=== PATIENT | female | born 1940 | race Caucasian/White ===

== ENCOUNTER 2022-02-26 07:26 | Outpatient (RCR) | payer MEDICARE, OTHER, SELFPAY ==
--- NOTE | 2022-02-26 13:33 | PT.OPEX ---
PT [facility] Eval PT [facility] Outpatient Eval Start: 02/26/22 07:12 Freq: Status: Active Protocol: Document 02/26/22 11:50 KLV (Rec: 02/26/22 12:09 KLV [id number]) E-signed By Tanesha Candelario, PT Physical Therapy Outpatient Evaluation Insurance Information Recert Due Date 05/21/22 Insurance Name Medicare B,Other; See Comments Insurance Information/Comments for life Medical Diagnosis Left knee pain (pre and post operative TKA) DOS 03/07/22 Treating Diagnosis Left knee pain, limited knee ROM, antalgic gait, impaired transfers, gross L LE weakness Referring MD Fay Subjective Subjective Patient reports to PT with chronic left knee pain. She notes right knee pain as well but not as severe as L side. She has had multiple rounds of injections with recent ones providing no significant relief. She denies any recent falls or injuries. She lives with her daughter, Jenny who will be present 27/01 for 1 week following Lima's surgery prior to her returning to work. Patient currently I with ambulation and ADLs including dressing, bathing, eating. Daughter assists with laundry, cooking and cleaning. Patient does live in split entry home with 9 steps to enter and uni railing on R side. Everything is on 1 level once she is inside the home. PMH: CVA affecting R side-has used AD in the past however not currently using AD, angina with stent placement, arthritis, osteoporosis Pain Comments 03/16 left knee 11/13 right knee Date of Last Physician Visit 01/16/22 Date of Surgery (If applicable) 03/07/22 Current Work Status Retired Precautions Weight Bearing Status Weight Bear as Tolerated Therapy Limitations/Systems Review Cognition,Hearing Objective Other/Pertinent Objective UE ROM WFL UE Strength (R/L): -ER0: R: 4-/5, L: 4/5 -IR0: R: 4/5, L: 4/5 -FF: R: 4/5, L: 4+/5 -Abduction: R: 3+/5, L: 4/5 Information Director strength: symmetrical B Sensation: intact to light touch throughout B LE Knee ROM: - R 0-134 - L 0-111 Quad set: good however painful L>R SLR able to perform x3 without assist, x2 with UE strap assist BP 142/83 HR 58 bpm Gait: ambulated without AD, limited stance time L LE, mid foot strike L LE Assessment Assessment/Impression Pt presents with signs and symptoms consistent with primary L knee OA. DOS: scheduled for 03/07/22. Anticipated deficits/ impairments in pain, ROM, and strength complicated by history of CVA, arthritis, osteoporosis. Pt would benefit from skilled PT interventions to facilitate preparation for upcoming surgery and optimization of return to PLOF following surgery. She demonstrates independence with HEP and use of FWW as well as appropriate gait pattern on stairs. Daughter will be present and able to assist with all caregiver needs post- surgery. Primary Functional Limitations Walking, sitting, standing Plan of Care Rehabilitation Potential Fair Physical Therapy Goals By end of session today, patient will... Demonstrate appropriate gait pattern with FWW to utilize post surgery for optimal safety when ambulating Demonstrate ability to negotiate stairs using appropriate stair pattern post surgery for optimal safety when at home and in community Verbalize understanding of most appropriate home set up including needed equipment for optimal safety and recovery post surgery Be independent in HEP program to show ability to perform appropriate exercises post surgery Treatment Plan/Direct Interventions Gait Training,Ice/Cold/ Vasopneumatic,Joint Mobilization,Manual Therapy, Neuromuscular Re-ed,Self-Care/ Home Management,Therapeutic Activities,Therapeutic Exercises Frequency/Duration 1-2 x/wk for 8 weeks Patient Will Be Discharged From Therapy Completion of LTG(s),Skills Plateau,Independent w/HEP, Independently Progressing Evaluation Billing Untimed Code Treatment Minutes 20 Complexity Moderate Certification Information Initial Certification Date 02/26/22 Ending Certification Date 05/21/22 Provider Signature Shows Agreement With POC & Medical Necessity Physician Comment/Change Comment or Changes Physician NPI Number #
== END 2022-05-02 11:40 | disposition home or self-care (01) ==
PROVIDERS: PCP Family Medicine; Visit Provider Orthopaedic Surgery
DX: M25.562 Pain in left knee (principal); Z51.89 Encounter for other specified aftercare
CPT/HCPCS: 97110; 97116; 97162

== ENCOUNTER 2022-03-07 07:57 | Day surgery (SDC) | payer MEDICARE, OTHER, SELFPAY ==
[2022-03-07] VITALS (38 sets, daily range): BP systolic 62–176; BP diastolic 45–100; PULSE 47–63; RESP 12–20; TEMP 35.4–36.7; O2SAT 91–99; BMI 32.0
[2022-03-07] MEDS: ACETAMINOPHEN 500 MG TABLET 1000 MG PO ×2 (09:41→18:01)
[2022-03-07] MEDS: OXYCODONE (CR) 10 MG TAB.ER.12H PO (09:41)
[2022-03-07] MEDS: LACTATED RINGERS 1000 ML 1,000 ML 100 ML IV (09:45)
[2022-03-07] MEDS: SODIUM CHLORIDE 0.9 % (FLUSH) 10 ML SYRINGE IVF (09:45)
[2022-03-07] MEDS: fentaNYL 100 MCG/2 ML inj IVP (09:52)
[2022-03-07] MEDS: MIDAZOLAM HCL 1 MG/ML inj IVP (09:52)
--- NOTE | 2022-03-07 10:00 | SUR.PREOP ---
TIME?OUT:?0956 PT/RN/MDA?VERIFICATION?OF?SURGICAL?SITE,?PROCEDURE,?AND?CONSENT OBTAINED?PRIOR?TO?INVASIVE?PROCEDURE.
--- NOTE | 2022-03-07 10:00 | W.PM.NB ---
Nerve Block Nerve Block Time Seen by Provider: 10:00 Date Seen: 03/07/22 Type of block requested by surgeon for post-operative analgesia: adductor canal Side: left Time out performed: Yes Verification of patient name: Yes Verification of date of : Yes Site marking: site marked Name of person performing procedure: Venancio Continuous monitoring Was continuous monitoring of O2 sat, B/P, administrative support clerk, recorded every 15 minutes?: Yes Procedure Checklist: sterile prep, needles and gloves Ultrasound guided. Images saved: Yes Medications given in 5ml increments after negative aspiration: Ropivicaine %: 0.5 mL: 20 Needle gauge: 22 Decadron (mg): 10 Precedex (mcg): 25 Patient tolerated procedure well: Yes Additional comments: Needle noted adjacent to nerve Block Charges Block Charge (with Pro Fee): Femoral Nerve Use of Ultrasound Machine for Block: Yes- US Guidance/pain block
[2022-03-07] MEDS: CEFAZOLIN 2 GM INJ IVP (10:09)
[2022-03-07] MEDS: TRANEXAMIC ACID 100 MG/ML INJ 1000 MG IV (10:10)
--- NOTE | 2022-03-07 11:35 | CRLHL7_ITS ---
For Patients: As a result of the Cures Act, medical imaging exams and procedure reports are released immediately into your electronic medical record. You may view this report before your referring provider. If you have questions, please contact your health care provider. INDICATION: Post operative left total knee arthroplasty TECHNIQUE: Knee radiograph 2 views left COMPARISON: None FINDINGS: Bone: No acute fractures or aggressive bone lesions are identified. Joint: The patient is status post a total knee arthroplasty with patellar resurfacing. No significant knee effusion is seen. Soft tissue: Anterior skin, subcutaneous gas and joint gas are present from recent surgery. No radiopaque foreign bodies are seen. IMPRESSION: 1. There is an unremarkable postoperative appearance of the knee arthroplasty. Dictated by: Omi Muñoz MD @ 03/07/2022 13:45:11 (Electronically Signed)
--- NOTE | 2022-03-07 11:41 | P.ORPRC_ITS ---
Procedure Note Date of procedure: 03/07/22 Procedure: SURGEON: Benson Fay MD RESEARCH TECHNOLOGIST: KIKO Hernandez PREOPERATIVE DIAGNOSIS: Left knee osteoarthritis POSTOPERATIVE DIAGNOSIS: Left knee osteoarthritis NAME OF OPERATION: Left total knee arthroplasty ANESTHESIA: Spinal ESTIMATED BLOOD LOSS: 0 mL COMPLICATIONS: None SPECIMENS: None DRAINS: None PREOPERATIVE ANTIBIOTICS: Ancef 2 grams IMPLANTS: 1. J&J Attune # 5 posterior stabilized femur 2. # 3 fixed-bearing tibia 3. # 5 posterior stabilized, 5 mm fixed-bearing polyethylene 4. 32 patella INDICATIONS: The patient is a 81-year-old female with a longstanding history of severe, unrelenting left knee pain secondary to end-stage (grade IV) left knee osteoarthritis. Despite appropriate nonoperative management, including activity modification, anti-inflammatories, qbrv-wip-znefxvz pain medication, bracing, physical therapy, and injections they continue to have pain and disability. Operative intervention was offered. The risks, benefits and expected outcomes were discussed in detail. These included but were not limited to: Infection, bleeding, injury to blood vessel or nerve, venous thromboembolism. All questions were answered to their satisfaction. Use of an food and nutrition services assistant was necessary throughout the case for patient positioning and safety, soft tissue retraction, and closure. PROCEDURE: Spinal anesthesia was administered. The patient was placed supine on the operating table. The food and nutrition services assistant made sure the patient was positioned appropriately. The lower extremity was prepped and draped in the usual sterile fashion. The limb was exsanguinated with the Farshad bandage. The pneumatic tourniquet was inflated to 300 mmHg. A standard anterior incision was made with the knee in flexion. Subcutaneous dissection was sharply taken through fascial layer #1. Full-thickness medial and lateral flaps were elevated. The food and nutrition services assistant retracted the soft tissues and protected them throughout the case. A standard medial parapatellar approach was made. The patella was everted. The infrapatellar fat pad was preserved. The menisci and cruciate ligaments were sharply d?brided. Marginal osteophytes were d?brided with the rongeur. The drill was used to penetrate the femoral canal. The canal was aspirated and irrigated with pulse lavage. The intramedullary femoral guide was placed for a 5-degree valgus cut, removing 10 mm off the distal femur. The saw was used to make the cut. Whitesides line and the trans epicondylar axis were marked. The femoral sizing guide was pinned onto the distal femur. Three degrees of external rotation nicely parallels the transepicondylar axis. Pins were placed for posterior referencing. The four-in-one cutting guide was pinned onto the distal femur. The anterior, posterior, and chamfer cuts were made. The food and nutrition services assistant protected the collateral ligaments. The box cutting guide was pinned. The box cuts were made. The boxed trial was placed and was an excellent fit. Drill holes for the lugs were made. Attention was then turned to the proximal tibia. The extramedullary tibial guide was placed for a neutral varus/valgus cut with 5 degrees of posterior slope, removing 2 mm based off the medial tibial surface. The food and nutrition services assistant protected the collateral ligaments and the neurovascular bundle. The saw was used to make the cut. Trial components were placed. The knee was nicely balanced in both flexion and extension. Rotation of the tibial component was matched to the femur in full extension, matched to our tibial cutting pins, and marked with cautery. The trial components were removed. The tray was pinned by the food and nutrition services assistant and the drill and the punch were used. The tray was removed. The punch was used again. We placed a bone plug in the femoral canal. Attention was then turned to the patella. [place] patellar thickness was 22 mm. The lobster claw resection guide was used with the 7.5 mm magalys. The saw was used to make the cut. Drill holes were made by the food and nutrition services assistant. The trial was placed and was an excellent fit. Cancellous surfaces were irrigated with pulse lavage and thoroughly dried by the food and nutrition services assistant. We cemented the tibial component, then the femoral component. A trial spacer was placed. The knee was brought into full extension. We then cemented the patellar component. Excessive cement was removed. The cement was allowed to harden. Any remaining excessive cement was removed with the osteotome. We impacted the 5 mm polyethylene onto the tibial tray. The knee was taken through a range of motion and was found to be nicely balanced in both flexion and extension. The patella tracks centrally. The food and nutrition services assistant did a three minute dilute Betadine solution soak. The food and nutrition services assistant irrigated the wound with 3 liters of normal saline via pulse lavage. The food and nutrition services assistant reapproximated the extensor mechanism with #1 Vicryl in an interrupted ozhqyn-fr-ymaii fashion. The food and nutrition services assistant then ran the extensor mechanism with a #1 PDO Stratafix. The food and nutrition services assistant closed the subcutaneous tissues with a 3-0 Stratafix and the skin with a running 3-0 Stratafix in a subcuticular fashion. Glue was used to seal the skin. The food and nutrition services assistant placed a dry dressing, PEÑA stocking, and Polar Care. Sponge and needle counts were correct x2. The patient tolerated the procedure well. There were no apparent complications. They were carefully transferred to the hospital bed and taken to the postanesthesia care unit in satisfactory condition. PLAN: The patient will be mobilized with physical therapy. Aspirin will be used for DVT prophylaxis. If possible, Plavix should be held for another day or 2. They will be discharged to home once medically appropriate.
--- NOTE | 2022-03-07 12:25 | W.ANESCHARGE ---
Anesthesia Charges Start Date/Time Anesthesia Start Date: 03/07/22 Anesthesia Start Time: 10:03 Stop Date/Time Anesthesia Stop Date: 03/07/22 Anesthesia Stop Time: 12:25 Summary Emergency: No Extremes of Age: Over 72-CPT 78210
--- NOTE | 2022-03-07 12:30 | W.ANESCHARGE ---
Anesthesia Charges Start Date/Time Anesthesia Start Date: 03/07/22 Anesthesia Start Time: 10:03 Stop Date/Time Anesthesia Stop Date: 03/07/22 Anesthesia Stop Time: 12:25 Summary Emergency: No Extremes of Age: Over 72-CPT 60684
[2022-03-07] MEDS: fentaNYL 100 MCG/2 ML inj 50 MCG IVP (13:13)
[2022-03-07] MEDS: LACTATED RINGERS 1000 ML 1,000 ML 75 ML IV (14:17)
--- NOTE | 2022-03-07 14:24 | SUR.PHASEI ---
patient met anesthesia criteria for discharge.
--- NOTE | 2022-03-07 14:28 | PC.NURSE ---
Addendum entered by Medardo Roldan RN 03/07/22 14:32: Correction - SUPERVISOR BRAIDING airway removed - NOT oral. Original Note: Pt up to CCU4 at 1405. Oral airway to left nare removed with AUTO SERVICE INSTRUCTOR.
--- NOTE | 2022-03-07 14:46 | PM.IMCN1 ---
Date of Consult Consult date: 03/07/22 Primary Care Provider: Meghan Lara MD Consult Narrative Narrative: HOSPITALIST CONSULT Hospital Day # 1 Post-Op Day #0 Date of procedure: 03/07/22 Procedure: SURGEON: Benson Fay MD PREOPERATIVE DIAGNOSIS: Left knee osteoarthritis POSTOPERATIVE DIAGNOSIS: Left knee osteoarthritis NAME OF OPERATION: Left total knee arthroplasty ANESTHESIA: Spinal ESTIMATED BLOOD LOSS: 0 mL COMPLICATIONS: None The hospital medicine team was asked by Orthopedic surgery team to manage the patient's significant dementia, heart disease, history of strokes, carotid stenosis, diabetes and chronic kidney disease. Patient underwent a left total knee arthroplasty earlier today. Her surgery was notable for knowledge that she had stopped her Plavix and aspirin as instructed. Her last doses of these medications were on Friday, March 05. They were offered to reschedule and warned of risks of bleeding and swelling they elected to continue with surgery today. In the postop. She was given fentanyl and she had an apneic episode. Nasal trumpet was placed and 10 L via mask were applied. She was supported through this short acting opioid and was on a nasal cannula oxygen upon arrival to the floor. She is resting comfortably and interviewed with her daughter bedside. PAST MEDICAL HISTORY: Dementia, significant Coronary artery disease, stent last placed in January 2021. PCI to the proximal mid LAD with SAMMY. She is followed by Cardiology. History of carotid endarterectomy and CVA. Subsequent TIAs have also been noted. Type 2 diabetes Hypertension Dyslipidemia Chronic kidney stage 3 PMR Migraines Depression MEDICATIONS: Reviewed specifically with her daughter and the home med list ALLERGIES: Codeine, gabapentin, hydrochlorothiazide, hydromorphone, penicillin, Ceftin signs of strawberries SURGICAL HISTORY: Appendectomy Right-sided carotid endarterectomy Cervical fusion x2 Caesarean section Esophageal dilation Hysterectomy with BSO Tonsillectomy FAMILY HISTORY: Reviewed in EMR HABITS: Former smoker quit 1998 Rare alcohol SOCIAL HISTORY: Lives with her daughter and son-in-law REVIEW OF SYSTEMS: 12-point ROS completed with patient and negative unless otherwise stated in HPI or below. PHYSICAL EXAM: CODE STATUS: Full Code CONSTITUTIONAL: pleasantly confused; no acute distress. edentulous. VITAL SIGNS: see record. HEENT: Normocephalic, atraumatic. PERRL, EOMI, conjunctivae pink, no scleral icterus. Ears and nose externally normal. Pharynx normal. NECK: No JVD. No carotid bruit, no thyromegaly, no adenopathy. CHEST: Clear to auscultation bilaterally HEART: No harsh murmurs. S1/S2. ABDOMEN: Flat, soft, nontender. Normal bowel sounds. Moderately obese. EXTREMITIES: No edema. MUSCULOSKELETAL: left knee surgical dressing in place without obvious drainage. NEURO: Cranial nerves intact. Normal affect. No gross deficits. Speech intelligible. SKIN: No rashes, petechiae, concerning changes PSYCHIATRIC: Euthymic. 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, stage III Chronic kidney disease (CKD), stage III (moderate) Coronary artery disease Dementia Depression Epilepsy, unspecified, not intractable, without status epilepticus Esophageal reflux Frictional lichenoid dermatosis History of cerebrovascular accident Hyperlipidemia, unspecified Hypertension Insomnia Memory loss Migraine, unspecified, not intractable, without status migrainosus Neck pain Paroxysmal atrial fibrillation Primary localized osteoarthritis of both knees TIA (transient ischemic attack) 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 Unspecified sensorineural hearing loss Uterine cancer Surgical History (Updated 03/07/22 @ 15:36 by Maryan Sharp MD) H/O section History of arthroplasty of right knee History of carotid endarterectomy History of cervical spinal surgery Hx of abdominal hysterectomy Hx of tonsillectomy Family History (Updated 02/26/22 @ 12:39 by Hayley Coles RN) Father Diabetes Heart attack Larynx cancer Mother Heart attack Brother Brain cancer High blood pressure Sister Skin cancer High blood pressure Social History Smoking Status: Former smoker Do you use any of these nicotine containing products: None Second hand tobacco smoke exposure: No How often do you have a drink containing alcohol: monthly or less Alcohol type: hard liquor How many standard drinks containing alcohol do you have on a typical day: 1 or 2 How often do you have six or more drinks on one occasion: Never AUDIT-C Alcohol total score: 1 Non-prescribed substance use: denies use Non-prescribed substance use details: tylenol Caffeine: Yes (coffee, 1 cup/day) Meds Home Medications and Allergies Home Medications Medication Instructions Recorded Confirmed Type atorvastatin 10 mg tablet 10 mg PO .Bedtime 01/16/22 03/07/22 History benzonatate 200 mg capsule 200 mg PO PRN 01/16/22 01/16/22 History citalopram 20 mg tablet 20 mg PO DAILY 01/16/22 03/07/22 History cyproheptadine 4 mg tablet 4 mg PO QAM 01/16/22 03/07/22 History furosemide 20 mg tablet 20 mg PO 01/16/22 01/16/22 History lisinopril 20 mg tablet 20 mg PO DAILY 01/16/22 03/07/22 History multivitamin (Multiple Vitamins 1 tab PO QAM 01/16/22 03/07/22 History tablet) nitroglycerin 0.4 mg sublingual 0.4 mg buccal Q5M PRN 01/16/22 03/07/22 History tablet pantoprazole 40 mg tablet,delayed mg PO 01/16/22 01/16/22 History release topiramate 100 mg tablet 100 mg PO BID 01/16/22 03/07/22 History trazodone 100 mg tablet 100 mg PO .Bedtime 01/16/22 03/07/22 History albuterol sulfate 90 mcg/actuation 1 inh inhalation Q4-6H PRN 03/07/22 03/07/22 History aerosol inhaler aspirin 81 mg tablet,delayed 81 mg PO DAILY 03/07/22 03/07/22 History release (Adult Low Dose Aspirin) clopidogrel 75 mg tablet 75 mg PO DAILY 03/07/22 03/07/22 History metoprolol succinate 100 mg 100 mg PO BID 03/07/22 03/07/22 History tablet,extended release 24 hr Allergies Allergy/AdvReac Type Severity Reaction Status Date / Time codeine Allergy Mild Verified 01/16/22 09:23 gabapentin Allergy Mild Verified 01/16/22 09:23 hydrochlorothiazide Allergy Mild Verified 01/16/22 09:23 hydromorphone Allergy Mild Verified 01/16/22 09:23 penicillin V Allergy Mild Verified 01/16/22 09:23 cefdinir AdvReac Unknown itching Verified 01/16/22 09:23 Sulfa drugs Allergy Mild Uncoded 01/16/22 09:23 wild strawberries Allergy Unknown Uncoded 01/16/22 09:23 Exam Const: Vital Signs, click to edit/add: Vital Signs - 24 hr 03/07/22 08:49 03/07/22 09:51 03/07/22 09:55 Temperature 98.0 F Pulse Rate 50 L 50 L 49 L Respiratory Rate 18 16 14 Blood Pressure 162/63 H 174/91 H 176/76 H Blood Pressure [Le ft Arm] Pulse Oximetry 95 95 95 Oxygen Delivery Me thod Nasal Cannula Nasal Cannula Oxygen Flow Rate 3 3 03/07/22 12:21 03/07/22 12:45 03/07/22 12:55 Temperature 97.3 F L 97.3 F L 97.3 F L Pulse Rate 63 51 L 49 L Respiratory Rate 15 16 19 Blood Pressure 103/83 134/57 L 113/91 H Blood Pressure [Le ft Arm] Pulse Oximetry 95 94 93 Oxygen Delivery Me thod Nasal Cannula Nasal Cannula Nasal Cannula Oxygen Flow Rate 4 2 1 03/07/22 12:25 03/07/22 12:30 03/07/22 12:35 Temperature 97.3 F L 97.3 F L 97.3 F L Pulse Rate 58 L 59 L 53 L Respiratory Rate 13 12 14 Blood Pressure 93/47 L 100/79 113/52 L Blood Pressure [Le ft Arm] Pulse Oximetry 96 97 96 Oxygen Delivery Me thod Nasal Cannula Nasal Cannula Nasal Cannula Oxygen Flow Rate 4 4 2 03/07/22 12:40 03/07/22 12:50 03/07/22 13:00 Temperature 97.3 F L 97.3 F L 97.3 F L Pulse Rate 50 L 51 L 49 L Respiratory Rate 14 19 14 Blood Pressure 116/61 129/60 107/55 L Blood Pressure [Le ft Arm] Pulse Oximetry 94 95 94 Oxygen Delivery Me thod Nasal Cannula Nasal Cannula Nasal Cannula Oxygen Flow Rate 2 2 1 03/07/22 13:10 03/07/22 13:05 03/07/22 13:17 Temperature 97.3 F L 97.3 F L 97.3 F L Pulse Rate 51 L 51 L 55 L Respiratory Rate 18 18 15 Blood Pressure 120/87 120/87 108/79 Blood Pressure [Le ft Arm] Pulse Oximetry 93 93 95 Oxygen Delivery Me thod OxyMask Nasal Cannula OxyMask Oxygen Flow Rate 10 1 10 03/07/22 13:20 03/07/22 13:25 03/07/22 13:30 Temperature 97.3 F L 97.3 F L 97.3 F L Pulse Rate 56 L 62 56 L Respiratory Rate 16 16 16 Blood Pressure 96/81 62/45 L 113/77 Blood Pressure [Le ft Arm] Pulse Oximetry 97 96 97 Oxygen Delivery Me thod OxyMask OxyMask OxyMask Oxygen Flow Rate 10 10 10 03/07/22 13:35 03/07/22 13:42 03/07/22 13:45 Temperature 97.3 F L 97.3 F L 97.3 F L Pulse Rate 55 L 55 L 53 L Respiratory Rate 14 14 14 Blood Pressure 105/66 105/66 92/69 Blood Pressure [Le ft Arm] Pulse Oximetry 97 97 95 Oxygen Delivery Me thod OxyMask OxyMask OxyMask Oxygen Flow Rate 10 10 6 03/07/22 13:51 03/07/22 13:55 03/07/22 14:00 Temperature 97.3 F L 97.3 F L 97.3 F L Pulse Rate 48 L 47 L 51 L Respiratory Rate 14 15 16 Blood Pressure 117/66 101/54 L 108/70 Blood Pressure [Le ft Arm] Pulse Oximetry 98 94 96 Oxygen Delivery Me thod OxyMask OxyMask OxyMask Oxygen Flow Rate 6 6 03/07/22 14:05 Temperature 95.8 F L Pulse Rate 60 Respiratory Rate 16 Blood Pressure Blood Pressure [Le ft Arm] 118/57 L Pulse Oximetry Oxygen Delivery Me thod OxyMask Oxygen Flow Rate 6 Assessment and Plan Assessment and plan (1) History of arthroplasty of right knee: Status: Acute Assessment and Plan: Hospital medicine team is happy to follow this patient through to discharge. From what we know so far she took her last dose of Plavix and aspirin about 48 hours prior to surgery. We will observe for hemarthrosis and increased swelling. There is some concern that she may need transitional care, short-term rehab. She also had an apneic episode after fentanyl in the PACU. Currently stable with excellent blood pressure. We will continue to monitor. A place her on telemetry and point of care glucose monitoring. (2) Hypertension: Status: Acute Assessment and Plan: She currently takes metoprolol and lisinopril for high blood pressure. At this time I am holding both of them but would add back the metoprolol 1st and then the lisinopril depending on how her blood pressure goes postoperatively. (3) Coronary artery disease: Status: Acute Assessment and Plan: Last intervention was summer. She has recently seen Cardiology. Assuming a benign course and if her knee isn't overtly swollen and hemarthrosis noted tomorrow we can restart her Plavix and aspirin. (4) Dementia: Status: Acute Assessment and Plan: Significant. Redirect. Reassure. 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 nitro Monitor blood pressures and stability and glucose closely.
[2022-03-07] MEDS: CEFAZOLIN 2 GM in 0.9 % SODIUM CHLORIDE Mini-bag 100 ML IVPB ×2 (15:47→23:08)
[2022-03-07] MEDS: OXYCODONE 5 MG TABLET PO ×3 (16:48→23:09)
--- NOTE | 2022-03-07 18:22 | PC.NURSE ---
PATIENT PLEASANT AND COOPERATIVE, ALERT AND ORIENTED TO SITUATION, DOES HAVE HX OF COGNITIVE IMPAIRMENT, DELAYED RESPONSE NOTED PER DTR THIS IS NORMAL, UP TO BSC WITH A2 TOLERATING FAIRLY, PATIENT EXPRESSED INCREASED PAIN WITH MOVEMENT, PRN OXYCODONE GIVEN WITH SOME RELIEF, ON 2L O2 WITH SATS 90% AND GREATER, MD AWARE OF 02 NEED, DRESSING CDI, CYRO CUFF TO SITE.
[2022-03-07] MEDS: ASPIRIN 81 MG TABLET EC PO (21:10)
[2022-03-07] MEDS: CELECOXIB 200 MG CAPSULE PO (21:10)
[2022-03-07] MEDS: SENNOSIDES 1 TAB TABLET 2 TAB PO (21:10)
[2022-03-07] MEDS: TOPIRAMATE 50 MG TABLET 100 MG PO (21:11)
[2022-03-08] MEDS: ACETAMINOPHEN 500 MG TABLET 1000 MG PO ×2 (00:34→06:55)
[2022-03-08 03:30] VITALS: BP 123/60; PULSE 53; RESP 16; TEMP 36.4; O2SAT 96
[2022-03-08] MEDS: LACTATED RINGERS 1000 ML 1,000 ML 75 ML IV (04:51)
[2022-03-08] MEDS: CEFAZOLIN 2 GM in 0.9 % SODIUM CHLORIDE Mini-bag 100 ML IVPB (06:54)
[2022-03-08] MEDS: OMEPRAZOLE 20 MG CAPSULE DR 40 MG PO (06:55)
[2022-03-08 07:03] LABS: Hematocrit 37.4 % (33.0-51.0); Hemoglobin* 12.2 gm/dL (12.0-16.0); Immature Granulocytes Abs Auto 0.01 K/uL (0.00-0.30); Lymphocytes Percent Auto 14.8 % (20-44); Mean Corpuscular HGB Conc 33 gm/dL (32-36); Mean Corpuscular Hemoglobin 35 pg (26-34); Mean Corpuscular Volume 106 fL (80-100); Monocytes Percent Auto 11.5 % (0.0-11.0); Neutrophils Percent Auto 73.6 % (42.0-72.0); Platelet Count* 200 K/uL (140-440); RDW Coefficient of Variation % 12.8 % (11.5-15.5); Red Blood Count 3.54 m/uL (4.00-5.20); White Blood Count* 9.24 K/uL (4.50-11.00)
[2022-03-08 07:18] LABS: Potassium* 4.5 mmol/L (3.6-5.1)
[2022-03-08 07:21] LABS: Blood Urea Nitrogen* 15 mg/dL (7-30); Est. Creatinine Clearance* 36.08; Estimated Glomerular Filt Rate 57 ml/min; Slide Review Reflex No
[2022-03-08 07:24] LABS: INR 1.14 (0.91-1.10)
--- NOTE | 2022-03-08 08:01 | PC.NURSE ---
END OF SHIFT NOTE: PT PLEASANTLY DEMENTED. TELE READS NSR/TONI. VSS ON 0.5L SUPPLEMENTAL OXYGEN NOC TO MAINTAIN SPO2 >90%. PT RATES LEFT KNEE PAIN 8-03/16 WITH RELIEF FROM ACTIVE ICE, PRN OXYCODONE AND SCHEDULED PAIN MEDS. PT DENIES CP AND N/V. PT BECOMES SOB WITH ACTIVITY. AMBULATES WITH WALKER, GB, 1-2A TO BATHROOM. PT DC?D RIGHT WRIST IV; CATHETER INTACT. NEW 22G IV PLACED IN LEFT WRIST?WITH LR @75ML/HR.
--- NOTE | 2022-03-08 08:04 | P.ORPN_ITS ---
Subjective Subjective Time Seen by Provider: 07:30 Date Seen: 03/08/22 Principal diagnosis: 1 day s/p left TKA Interval history: Lima is doing well this morning and is resting comfortably in her recliner eating her breakfast. Patient has advanced dementia and was not able to respond appropriately to several questions. Patient admits to strong appetite. C/o moderate left knee pain. Pain is well managed with ice, Oxycodone and Tylenol [place] N. Patient did not respond to questioning involving: fever, chills, chest pain, SOB, last BM. Patient has not yet been seen by Physical Therapy this morning. Ortho Exam Narrative Exam Narrative: Incision/Dressing: Dressing appears clean and dry. No drainage present. Mepilex intact. Left knee appears moderately swollen but supple with no obvious erythema, fluctuance or excessive warmth. No ecchymosis or erythematous streaking. Warmth around the wound is appropriate. Ice is being utilized as nee ded. CMS: Intact distally with 2+ Dorsalis pedis and Posterior Tibial pulses. 5/5 motor strength dorsal and plantar flexion. Confirmed sensation distally. Intact straight leg raise. Calf: Bilateral calves are supple, with no swelling, pain, tenderness, erythema, discoloration or coolness to the touch. Constitutional: Patient has advanced dementia. Patient did not respond to several questions. Patient is alert with no acute distress and converses without labored breathing. Patient is pleasant and cooperative. Const Vital Signs, click to edit/add: Vital Signs - 24 hr 03/07/22 08:49 03/07/22 09:51 03/07/22 09:55 Temperature 98.0 F Pulse Rate 50 L 50 L 49 L Pulse Rate [Pulse Oximeter] Respiratory Rate 18 16 14 Blood Pressure 162/63 H 174/91 H 176/76 H Blood Pressure [Left Arm] Pulse Oximetry 95 95 95 Oxygen Delivery Method Nasal Cannula Nasal Cannula Oxygen Flow Rate 3 3 03/07/22 12:21 03/07/22 12:45 03/07/22 12:55 Temperature 97.3 F L 97.3 F L 97.3 F L Pulse Rate 63 51 L 49 L Pulse Rate [Pulse Oximeter] Respiratory Rate 15 16 19 Blood Pressure 103/83 134/57 L 113/91 H Blood Pressure [Left Arm] Pulse Oximetry 95 94 93 Oxygen Delivery Method Nasal Cannula Nasal Cannula Nasal Cannula Oxygen Flow Rate 4 2 1 03/07/22 12:25 03/07/22 12:30 03/07/22 12:35 Temperature 97.3 F L 97.3 F L 97.3 F L Pulse Rate 58 L 59 L 53 L Pulse Rate [Pulse Oximeter] Respiratory Rate 13 12 14 Blood Pressure 93/47 L 100/79 113/52 L Blood Pressure [Left Arm] Pulse Oximetry 96 97 96 Oxygen Delivery Method Nasal Cannula Nasal Cannula Nasal Cannula Oxygen Flow Rate 4 4 2 03/07/22 12:40 03/07/22 12:50 03/07/22 13:00 Temperature 97.3 F L 97.3 F L 97.3 F L Pulse Rate 50 L 51 L 49 L Pulse Rate [Pulse Oximeter] Respiratory Rate 14 19 14 Blood Pressure 116/61 129/60 107/55 L Blood Pressure [Left Arm] Pulse Oximetry 94 95 94 Oxygen Delivery Method Nasal Cannula Nasal Cannula Nasal Cannula Oxygen Flow Rate 2 2 1 03/07/22 13:10 03/07/22 13:05 03/07/22 13:17 Temperature 97.3 F L 97.3 F L 97.3 F L Pulse Rate 51 L 51 L 55 L Pulse Rate [Pulse Oximeter] Respiratory Rate 18 18 15 Blood Pressure 120/87 120/87 108/79 Blood Pressure [Left Arm] Pulse Oximetry 93 93 95 Oxygen Delivery Method OxyMask Nasal Cannula OxyMask Oxygen Flow Rate 10 1 10 03/07/22 13:20 03/07/22 13:25 03/07/22 13:30 Temperature 97.3 F L 97.3 F L 97.3 F L Pulse Rate 56 L 62 56 L Pulse Rate [Pulse Oximeter] Respiratory Rate 16 16 16 Blood Pressure 96/81 62/45 L 113/77 Blood Pressure [Left Arm] Pulse Oximetry 97 96 97 Oxygen Delivery Method OxyMask OxyMask OxyMask Oxygen Flow Rate 10 10 10 03/07/22 13:35 03/07/22 13:42 03/07/22 13:45 Temperature 97.3 F L 97.3 F L 97.3 F L Pulse Rate 55 L 55 L 53 L Pulse Rate [Pulse Oximeter] Respiratory Rate 14 14 14 Blood Pressure 105/66 105/66 92/69 Blood Pressure [Left Arm] Pulse Oximetry 97 97 95 Oxygen Delivery Method OxyMask OxyMask OxyMask Oxygen Flow Rate 10 10 6 03/07/22 13:51 03/07/22 13:55 03/07/22 14:00 Temperature 97.3 F L 97.3 F L 97.3 F L Pulse Rate 48 L 47 L 51 L Pulse Rate [Pulse Oximeter] Respiratory Rate 14 15 16 Blood Pressure 117/66 101/54 L 108/70 Blood Pressure [Left Arm] Pulse Oximetry 98 94 96 Oxygen Delivery Method OxyMask OxyMask OxyMask Oxygen Flow Rate 6 6 03/07/22 14:05 03/07/22 14:15 03/07/22 14:30 Temperature 95.8 F L 96.7 F L Pulse Rate 60 Pulse Rate [Pulse Oximeter] Respiratory Rate 16 16 16 Blood Pressure Blood Pressure [Left Arm] 118/57 L 112/68 116/100 H Pulse Oximetry 94 94 Oxygen Delivery Method OxyMask Nasal Cannula OxyMask Nasal Cannula Oxygen Flow Rate 6 4 4 03/07/22 14:45 03/07/22 15:00 03/07/22 15:15 Temperature 96.7 F L Pulse Rate Pulse Rate [Pulse Oximeter] Respiratory Rate 16 16 16 Blood Pressure Blood Pressure [Left Arm] 109/82 89/74 L 119/58 L Pulse Oximetry 94 99 91 Oxygen Delivery Method Nasal Cannula OxyMask Nasal Cannula Nasal Cannula Oxygen Flow Rate 4 4 2 03/07/22 15:30 03/07/22 16:00 03/07/22 17:00 Temperature 96.3 F L Pulse Rate Pulse Rate [Pulse Oximeter] Respiratory Rate 16 16 16 Blood Pressure Blood Pressure [Left Arm] 126/68 113/87 130/61 Pulse Oximetry 99 97 96 Oxygen Delivery Method Nasal Cannula Nasal Cannula Nasal Cannula Oxygen Flow Rate 2 2 2 03/07/22 18:00 03/07/22 19:30 03/07/22 20:00 Temperature 97.3 F L Pulse Rate Pulse Rate [Pulse Oximeter] 56 L Respiratory Rate 16 18 Blood Pressure Blood Pressure [Left Arm] 122/66 133/59 L 138/80 Pulse Oximetry 97 93 91 Oxygen Delivery Method Nasal Cannula Room Air Room Air Oxygen Flow Rate 1 0 0 03/07/22 22:07 03/07/22 23:00 03/07/22 23:00 Temperature Pulse Rate 58 L Pulse Rate [Pulse Oximeter] Respiratory Rate 18 20 Blood Pressure Blood Pressure [Left Arm] Pulse Oximetry 91 93 Oxygen Delivery Method Nasal Cannula Nasal Cannula Oxygen Flow Rate 0.5 0.5 03/07/22 23:00 03/07/22 23:00 03/08/22 03:30 Temperature 98.1 F 97.5 F L Pulse Rate Pulse Rate [Pulse Oximeter] 59 L 59 L 53 L Respiratory Rate 20 20 16 Blood Pressure Blood Pressure [Left Arm] 114/53 L 123/60 Pulse Oximetry 93 96 Oxygen Delivery Method Nasal Cannula Nasal Cannula Oxygen Flow Rate 0.5 0.5 Documenting provider has reviewed patient's vital signs: yes Common normals: no apparent distress Resp Common normals: Yes normal respiratory effort Assessment and Plan Assessment and plan (1) History of arthroplasty of right knee: Problem details: 1 day s/p left TKA Status: Acute Assessment and Plan: - Complete 23 hour perioperative antibiotics. - PT/OT consults for education and assistance. - Social consult for discharge planning. - Weight bear as tolerated with use of walker. - DVT prophylaxis includes: aspirin 81 mg BID x 1 month. Also bilateral knee high Bryce stockings (x 1 month), frequent ambulation and ankle pumps when sedentary. - Discharge date is unknown. Patient may require an additional night for further observation. - Patient will return to clinic in 7-10 days for a wound check. Mepilex dressing will be removed at this appointment. Remove sooner if dressing becomes saturated. - Return to clinic in [address] Fay. - Prescribed analgesics as needed. Patient is content with current narcotic medications. Minimize narcotic pain medication use; wean off and discontinue as soon as possible. - Phone Orthopedics with any questions or concerns. 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
[2022-03-08 08:15] VITALS: BP 144/68; PULSE 59; PULSE 64; RESP 18; TEMP 36.9; O2SAT 93
[2022-03-08] MEDS: OXYCODONE 5 MG TABLET PO ×2 (08:28→13:31)
[2022-03-08] MEDS: SENNOSIDES 1 TAB TABLET 2 TAB PO (10:06)
[2022-03-08] MEDS: CELECOXIB 200 MG CAPSULE PO (10:07)
[2022-03-08] MEDS: FUROSEMIDE 40 MG TABLET 20 MG PO (10:08)
[2022-03-08] MEDS: ASPIRIN 81 MG TABLET EC PO (10:09)
[2022-03-08] MEDS: CITALOPRAM HYDROBROMIDE 20 MG TABLET PO (10:10)
[2022-03-08] MEDS: TOPIRAMATE 50 MG TABLET 100 MG PO (10:10)
--- NOTE | 2022-03-08 11:16 | PM.DS1 ---
DS: Providers Provider Time Seen by Provider: 10:13 Date Seen: 03/08/22 Date of admission: 03/07/22 07:57 Primary care physician: Meghan Lara MD Admitting Clinician: Benson Fay MD Consults: 03/07/22 12:37 Consult to Occupational Therapy [CONS] Routine Comment: Reason(s) for OT Consult:: ADLs Prior to Discharge Any Restrictions?:: See Comment Comment: See nursing activity order for any restrictions. Consult to Physical Therapy [CONS] Routine Comment: Ambulate in the [place] today. Reason(s) for PT Consult:: TKA TX Protocol POD#0 Any Restrictions?:: See Comment Comment: See nursing activity order for any restrictions. Consult to Physician [CONS] Routine Comment: Consulting Provider: Hospitalists Has provider been notified: No Consult to Safety Assistant [CONS] Routine Comment: Reason for Consult:: Discharge Planning Needs Attending Physician on discharge: Benson Fay MD Date of Discharge: 03/08/22 DS: Diagnosis Discharge Diagnosis (1) History of arthroplasty of right knee: Status: Acute Problem details: 1 day s/p left TKA (2) Apnea, transient: Status: Acute Problem details: with administration of fentanyl postoperatively 03/07/22 (3) Dementia: Status: Chronic (4) Type 2 diabetes mellitus with diabetic chronic kidney disease: Status: Chronic (5) Migraine, unspecified, not intractable, without status migrainosus: Status: Chronic (6) Hypertension: Status: Chronic (7) Depression: Status: Chronic (8) Coronary artery disease: Status: Chronic (9) 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 It is notable that preoperatively she had been asked to stop her aspirin and Plavix 7 days prior to surgery, however her last doses of these medications were Friday, March 05. It was offered that she could reschedule and the patient and her family were warned of the bleeding and swelling risks, however they elected to continue with the surgery. Immediately postoperatively she had an apneic spell with fentanyl. A nasal trumpet was placed and she was given oxygen via OxyMask at 10 liters/minute. The apneic spell resolved and she was transported to the floor on nasal cannula, resting comfortably. She had no further apneic spells. She is doing well today and was able to ambulate with standby assistance. She lives at home with her daughter, Nicolasa, who was here with her today and agreeable to take her home. I spoke with the ortho PA, Cass, around 10:45 a.m. about the erythema over the medial aspect of the left knee. Time Spent with Patient Time attestation: Total time spent providing and/or coordinating discharge services: Exam Narrative: Exam Narrative: General: No acute distress. Pleasant, oriented to self. No pallor. No jaundice. Oropharynx: Clear. Mucous membranes moist. Cardiovascular: Regular rate and rhythm. No murmurs, gallops, or rubs. Respiratory: Clear to auscultation bilaterally. No wheezes or crackles. Abdomen: Bowel sounds present. Soft, nondistended, nontender. Extremities: No pedal edema. Left knee bandage is clean, dry and intact. Mild erythema in a wedge shape with a thicker part extending from under the bandage medially to the medial aspect of the knee. This area is mildly warm and tender to the touch. Const: Vital Signs, click to edit/add: Vital Signs - 24 hr 03/07/22 12:21 03/07/22 12:45 03/07/22 12:55 Temperature 97.3 F L 97.3 F L 97.3 F L Pulse Rate 63 51 L 49 L Pulse Rate [Pulse Oximeter] Respiratory Rate 15 16 19 Blood Pressure 103/83 134/57 L 113/91 H Blood Pressure [Le ft Arm] Pulse Oximetry 95 94 93 Oxygen Delivery Me thod Nasal Cannula Nasal Cannula Nasal Cannula Oxygen Flow Rate 4 2 1 03/07/22 12:25 03/07/22 12:30 03/07/22 12:35 Temperature 97.3 F L 97.3 F L 97.3 F L Pulse Rate 58 L 59 L 53 L Pulse Rate [Pulse Oximeter] Respiratory Rate 13 12 14 Blood Pressure 93/47 L 100/79 113/52 L Blood Pressure [Le ft Arm] Pulse Oximetry 96 97 96 Oxygen Delivery Me thod Nasal Cannula Nasal Cannula Nasal Cannula Oxygen Flow Rate 4 4 2 03/07/22 12:40 03/07/22 12:50 03/07/22 13:00 Temperature 97.3 F L 97.3 F L 97.3 F L Pulse Rate 50 L 51 L 49 L Pulse Rate [Pulse Oximeter] Respiratory Rate 14 19 14 Blood Pressure 116/61 129/60 107/55 L Blood Pressure [Le ft Arm] Pulse Oximetry 94 95 94 Oxygen Delivery Me thod Nasal Cannula Nasal Cannula Nasal Cannula Oxygen Flow Rate 2 2 1 03/07/22 13:10 03/07/22 13:05 03/07/22 13:17 Temperature 97.3 F L 97.3 F L 97.3 F L Pulse Rate 51 L 51 L 55 L Pulse Rate [Pulse Oximeter] Respiratory Rate 18 18 15 Blood Pressure 120/87 120/87 108/79 Blood Pressure [Le ft Arm] Pulse Oximetry 93 93 95 Oxygen Delivery Me thod OxyMask Nasal Cannula OxyMask Oxygen Flow Rate 10 1 10 03/07/22 13:20 03/07/22 13:25 03/07/22 13:30 Temperature 97.3 F L 97.3 F L 97.3 F L Pulse Rate 56 L 62 56 L Pulse Rate [Pulse Oximeter] Respiratory Rate 16 16 16 Blood Pressure 96/81 62/45 L 113/77 Blood Pressure [Le ft Arm] Pulse Oximetry 97 96 97 Oxygen Delivery Me thod OxyMask OxyMask OxyMask Oxygen Flow Rate 10 10 10 03/07/22 13:35 03/07/22 13:42 03/07/22 13:45 Temperature 97.3 F L 97.3 F L 97.3 F L Pulse Rate 55 L 55 L 53 L Pulse Rate [Pulse Oximeter] Respiratory Rate 14 14 14 Blood Pressure 105/66 105/66 92/69 Blood Pressure [Le ft Arm] Pulse Oximetry 97 97 95 Oxygen Delivery Me thod OxyMask OxyMask OxyMask Oxygen Flow Rate 10 10 6 03/07/22 13:51 03/07/22 13:55 03/07/22 14:00 Temperature 97.3 F L 97.3 F L 97.3 F L Pulse Rate 48 L 47 L 51 L Pulse Rate [Pulse Oximeter] Respiratory Rate 14 15 16 Blood Pressure 117/66 101/54 L 108/70 Blood Pressure [Le ft Arm] Pulse Oximetry 98 94 96 Oxygen Delivery Me thod OxyMask OxyMask OxyMask Oxygen Flow Rate 6 6 03/07/22 14:05 03/07/22 14:15 03/07/22 14:30 Temperature 95.8 F L 96.7 F L Pulse Rate 60 Pulse Rate [Pulse Oximeter] Respiratory Rate 16 16 16 Blood Pressure Blood Pressure [Le ft Arm] 118/57 L 112/68 116/100 H Pulse Oximetry 94 94 Oxygen Delivery Me thod OxyMask Nasal Cannula OxyM ask Nasal Cannula Oxygen Flow Rate 6 4 4 03/07/22 14:45 03/07/22 15:00 03/07/22 15:15 Temperature 96.7 F L Pulse Rate Pulse Rate [Pulse Oximeter] Respiratory Rate 16 16 16 Blood Pressure Blood Pressure [Le ft Arm] 109/82 89/74 L 119/58 L Pulse Oximetry 94 99 91 Oxygen Delivery Me thod Nasal Cannula OxyM ask Nasal Cannula Nasal Cannula Oxygen Flow Rate 4 4 2 03/07/22 15:30 03/07/22 16:00 03/07/22 17:00 Temperature 96.3 F L Pulse Rate Pulse Rate [Pulse Oximeter] Respiratory Rate 16 16 16 Blood Pressure Blood Pressure [Le ft Arm] 126/68 113/87 130/61 Pulse Oximetry 99 97 96 Oxygen Delivery Me thod Nasal Cannula Nasal Cannula Nasal Cannula Oxygen Flow Rate 2 2 2 03/07/22 18:00 03/07/22 19:30 03/07/22 20:00 Temperature 97.3 F L Pulse Rate Pulse Rate [Pulse Oximeter] 56 L Respiratory Rate 16 18 Blood Pressure Blood Pressure [Le ft Arm] 122/66 133/59 L 138/80 Pulse Oximetry 97 93 91 Oxygen Delivery Me thod Nasal Cannula Room Air Room Air Oxygen Flow Rate 1 0 0 03/07/22 22:07 03/07/22 23:00 03/07/22 23:00 Temperature Pulse Rate 58 L Pulse Rate [Pulse Oximeter] Respiratory Rate 18 20 Blood Pressure Blood Pressure [Le ft Arm] Pulse Oximetry 91 93 Oxygen Delivery Me thod Nasal Cannula Nasal Cannula Oxygen Flow Rate 0.5 0.5 03/07/22 23:00 03/07/22 23:00 03/08/22 03:30 Temperature 98.1 F 97.5 F L Pulse Rate Pulse Rate [Pulse Oximeter] 59 L 59 L 53 L Respiratory Rate 20 20 16 Blood Pressure Blood Pressure [Le ft Arm] 114/53 L 123/60 Pulse Oximetry 93 96 Oxygen Delivery Me thod Nasal Cannula Nasal Cannula Oxygen Flow Rate 0.5 0.5 DS: Data Data Completed and Pending Completed studies during hospitalization: Ordering Physician: Benson Fay M.D. Date of Service: 03/07/22 Procedure(s): XR knee LT 2V Accession Number(s): [id number] cc: Benson Fay M.D.; Meghan Lara M.D.~ For Patients: As a result of the Century Cures Act, medical imaging exams and procedure reports are released immediately into your electronic medical record. You may view this report before your referring provider. If you have questions, please contact your health care provider. INDICATION: Post operative left total knee arthroplasty TECHNIQUE: Knee radiograph 2 views left COMPARISON: None FINDINGS: Bone: No acute fractures or aggressive bone lesions are identified. Joint: The patient is status post a total knee arthroplasty with patellar resurfacing. No significant knee effusion is seen. Soft tissue: Anterior skin, subcutaneous gas and joint gas are present from recent surgery. No radiopaque foreign bodies are seen. IMPRESSION: 1. There is an unremarkable postoperative appearance of the knee arthroplasty. Dictated by: Omi Muñoz MD @ 03/07/2022 13:45:11 (Electronically Signed) Labs on day of discharge: Labs from last 24 hours 03/08/22 03/08/22 03/08/22 06:40 06:40 06:40 WBC 9.24 RBC 3.54 L Hgb 12.2 Hct 37.4 MCV 106 H MCH 35 H MCHC 33 RDW Coeff of Williams 12.8 Plt Count 200 Neut % (Auto) 73.6 H Lymph % (Auto) 14.8 L [place] % (Auto) 11.5 H Eos % (Auto) 0.0 Baso % (Auto) 0.0 Neut # (Auto) 6.80 Lymph # (Auto) 1.40 [place] # (Auto) 1.10 H Eos # (Auto) 0.00 Baso # (Auto) 0.00 Abs Immat Gran (auto) 0.01 INR 1.14 H Potassium 4.5 BUN 15 Creatinine 1.0 Estimated Creat Clear 36.08 Estimated GFR 57 Discharge Plan Discharge Disposition: Home, Self-Care Discharging Surgeon: Benson Fay Follow-Up Appointment: 1 week Prescriptions: New acetaminophen 500 mg Tablet 500 - 1,000 mg PO Q6H Qty: 100 0RF aspirin 81 mg Tablet,Delayed Release (Dr/Ec) 81 mg PO BID Qty: 60 0RF oxycodone 5 mg Tablet 2.5 - 5 mg PO Q4-6H PRN (Reason: Pain) Qty: 42 0RF sennosides [Senna Lax] 8.6 mg Tablet 17.2 mg PO BID Qty: 30 0RF Rx Instructions: Hold if experiencing loose stools. Continued furosemide 20 mg tablet 20 mg PO .TWICE WEEKLY Rx Instructions: QAM ON & citalopram 20 mg tablet 20 mg PO DAILY cyproheptadine 4 mg tablet 4 mg PO QAM lisinopril 20 mg tablet 20 mg PO DAILY topiramate 100 mg tablet 100 mg PO BID trazodone 100 mg tablet 100 mg PO .Bedtime nitroglycerin 0.4 mg tablet, sublingual 0.4 mg buccal Q5M PRN Rx Instructions: PRN CHEST PAIN benzonatate 200 mg capsule 200 mg PO PRN multivitamin [Multiple Vitamins] Tablet 1 tab PO QAM albuterol sulfate 90 mcg/actuation HFA aerosol inhaler 1 inh inhalation Q4-6H PRN metoprolol succinate 100 mg tablet extended release 24 hr 100 mg PO BID clopidogrel 75 mg tablet 75 mg PO DAILY atorvastatin 20 mg tablet 20 mg PO HS esomeprazole magnesium 40 mg capsule,delayed release(DR/EC) 40 mg PO DAILY Held aspirin [Adult Low Dose Aspirin] 81 mg tablet,delayed release (DR/EC) 81 mg PO DAILY Hold Instructions: Resume on 04/12/22. May resume this dosing of aspirin when postoperative twice a day dosing of aspirin is complete. Activity Level: Activity as Tolerated, No strenuous activity and Weight Bearing as Tolerated Activity Detail: Keep dressing on for 1 week. Dressing is waterproof. May shower. Surgical glue covers the wound. Attend outpatient physical therapy if scheduled. Ice operative extremity without restriction. Wear compression stockings for 1 month post surgery. May remove for 1 hour per day. Ambulate every hour throughout the day. Do not drive while taking narcotic pain medication. Do not drink alcohol while taking narcotic pain medication. May drive when safe to do so and have full function of the extremities, this may take 6 weeks or more. Notify Orthopedics with any questions or concerns. ([phone]) Discharge Diet: Regular Patient Instructions: Acetaminophen (By mouth), Aspirin (By mouth), Oxycodone, Rapid Release (By mouth), Senna (By mouth), Surgical Site Infections (DC), Knee Replacement (DC) Forms: [facility] Info Instructions Follow-up: [facility] [Other] - 03/12/22 7:30 am Cass Gagnon PA-C [[facility]] - 03/13/22 5:20 pm Meghan Lara MD [Primary Care Provider] - (Set up appointment as needed) Discharge Orders: Discharge Order (Routine); Ordered 03/08/22 Ordered By: Cass Gagnon
[2022-03-08 12:00] VITALS: BP 119/60; PULSE 68; RESP 18; TEMP 36.9; O2SAT 95
[2022-03-08 13:43] LABS: Sodium* 139 mmol/L (135-149)
--- NOTE | 2022-03-08 16:07 | PC.NURSE ---
shift note: pt up 1/walker.pt has swelling to lt knee with bruising. Area around knee tender and warm to touch. Dr. Mckinney notified and Susan BABCOCK assessed lt knee with no further orders.drsg to lt knee c/d/i. IV dc'd intact. Pt tolerating regular diet. Pt medicated with oxycodone x2 for 8-10/10 pain with relief. LS clr. IS performed to 1500. Reviewed dc instructions with pt and her daughter. questions addressed and copies of dc instructions sent with pt at de. Belongings reviewed and sent with pt at de. Cryo cuff sent with pt at de.
== END 2022-03-08 15:43 | disposition home or self-care (01) ==
LOC: MEDSURG 03-08 11:42 → SS 03-08 12:11 → MEDSURG 03-08 12:12
PROVIDERS: PCP Family Medicine; Visit Provider Orthopaedic Surgery
PROC: (CPT 27447; principal; 2022-03-07 09:30)
DX: M17.12 Unilateral primary osteoarthritis, left knee (principal); F03.90 Unspecified dementia, unspecified severity, without behavioral disturbance, psychotic disturbance, mood disturbance, and anxiety; I12.9 Hypertensive chronic kidney disease with stage 1 through stage 4 chronic kidney disease, or unspecified chronic kidney disease; E11.22 Type 2 diabetes mellitus with diabetic chronic kidney disease; N18.30 Chronic kidney disease, stage 3 unspecified; I25.10 Atherosclerotic heart disease of native coronary artery without angina pectoris; Z86.73 Personal history of transient ischemic attack (TIA), and cerebral infarction without residual deficits; F32.A Depression, unspecified; G43.909 Migraine, unspecified, not intractable, without status migrainosus
CPT/HCPCS: 27447; 01402; 36415; 64447; 73560; 76942; 82565; 82947; 84132; 84295; 84520; 85025; 85610; 97110; 97116; 97161; 97165; 97530; 97535; 99100; A9270; C1776; J0330; J0690; J1100; J2250; J2704; J2795; J3010; J7120

== ENCOUNTER 2022-03-09 21:01 | Outpatient (CLI) | payer MEDICARE, OTHER, SELFPAY | END 2022-03-09 21:02 | disposition home or self-care (01) | PROVIDERS: PCP Family Medicine; Visit Provider Family Medicine | DX: M25.562 Pain in left knee (principal); R35.1 Nocturia | CPT/HCPCS: A0425; A0427 ==

== ENCOUNTER 2022-03-09 21:47 | Observation (INO) | payer MEDICARE, OTHER, SELFPAY ==
[2022-03-09 21:49] VITALS: BP 144/125; PULSE 79; RESP 18; TEMP 36.9; O2SAT 95; BMI 32.7
--- NOTE | 2022-03-09 21:54 | ED_ITS ---
HPI - General Adult General Time Seen by Provider: 21:54 Date Seen: 03/09/22 Chief complaint: Weakness Stated complaint: WEAKNESS Time Seen by Provider: 03/09/22 21:49 Source: patient Mode of arrival: ambulatory Limitations: no limitations History of Present Illness HPI narrative: 81-year-old female postop day 2 status post total knee replacement who presents here with difficulty coping at home. Patient had uncomplicated surgery and initially and was discharged yesterday. She says she has had difficulty getting around at home, daughter who is with her also reports poor oral intake. She denies chest pain, shortness of breath, abdominal pain, vomiting, diarrhea, fever, or chills. Related Data Home Medications Medication Instructions Recorded Confirmed benzonatate 200 mg capsule 200 mg PO PRN 01/16/22 01/16/22 citalopram 20 mg tablet 20 mg PO DAILY 01/16/22 03/09/22 cyproheptadine 4 mg tablet 4 mg PO QAM 01/16/22 03/09/22 furosemide 20 mg tablet 20 mg PO .TWICE WEEKLY 01/16/22 03/09/22 lisinopril 20 mg tablet 20 mg PO DAILY 01/16/22 03/09/22 multivitamin (Multiple Vitamins 1 tab PO QAM 01/16/22 03/07/22 tablet) nitroglycerin 0.4 mg sublingual 0.4 mg buccal Q5M PRN 01/16/22 03/07/22 tablet topiramate 100 mg tablet 100 mg PO BID 01/16/22 03/09/22 trazodone 100 mg tablet 100 mg PO .Bedtime 01/16/22 03/09/22 albuterol sulfate 90 mcg/actuation 1 inh inhalation Q4-6H PRN 03/07/22 03/07/22 aerosol inhaler aspirin 81 mg tablet,delayed 81 mg PO DAILY 03/07/22 03/07/22 release (Adult Low Dose Aspirin) clopidogrel 75 mg tablet 75 mg PO DAILY 03/07/22 03/09/22 metoprolol succinate 100 mg 100 mg PO BID 03/07/22 03/09/22 tablet,extended release 24 hr atorvastatin 20 mg tablet 20 mg PO HS 03/08/22 03/09/22 esomeprazole magnesium 40 mg 40 mg PO DAILY 03/08/22 03/09/22 capsule,delayed release Previous Rx's Medication Instructions Recorded acetaminophen 500 mg tablet 500 - 1,000 mg PO Q6H #100 tabs 03/08/22 aspirin 81 mg tablet,delayed 81 mg PO BID #60 tabs 03/08/22 release oxycodone 5 mg tablet 2.5 - 5 mg PO Q4-6H PRN Pain #42 03/08/22 tabs sennosides 8.6 mg tablet (Senna 17.2 mg PO BID Postop constipation 03/08/22 Lax) #30 tabs Allergies Allergy/AdvReac Type Severity Reaction Status Date / Time codeine Allergy Mild Verified 03/09/22 21:57 gabapentin Allergy Mild Verified 03/09/22 21:57 hydrochlorothiazide Allergy Mild Verified 03/09/22 21:57 hydromorphone Allergy Mild Verified 03/09/22 21:57 penicillin V Allergy Mild Verified 03/09/22 21:57 cefdinir AdvReac Unknown itching Verified 03/09/22 21:57 wild strawberries Allergy Unknown Uncoded 01/16/22 09:23 Review of Systems Status of ROS: Reports: 10 or more systems reviewed and unremarkable except as noted in History and below [facility] Medical History (Updated 03/09/22 @ 23:02 by Carrie Mckinney MD) Anemia Anxiety state 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, stage III Chronic kidney disease (CKD), stage III (moderate) Coronary artery disease Dementia Depression Epilepsy, unspecified, not intractable, without status epilepticus Esophageal reflux Frictional lichenoid dermatosis History of cerebrovascular accident Hyperlipidemia, unspecified Hypertension Insomnia Memory loss Migraine, unspecified, not intractable, without status migrainosus Neck pain Paroxysmal atrial fibrillation Primary localized osteoarthritis of both knees TIA (transient ischemic attack) 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 Unspecified sensorineural hearing loss Uterine cancer Surgical History (Updated 03/09/22 @ 23:02 by Carrie Mckinney MD) H/O section History of carotid endarterectomy History of cervical spinal surgery Hx of abdominal hysterectomy Hx of tonsillectomy Family History Father Diabetes Heart attack Larynx cancer Mother Heart attack Brother Brain cancer High blood pressure Sister Skin cancer High blood pressure Social History (Updated 03/09/22 @ 23:02 by Carrie Mckinney MD) Narrative: Lives with daughter Smoking Status: Former smoker Do you use any of these nicotine containing products: None Second hand tobacco smoke exposure: No How often do you have a drink containing alcohol: monthly or less Alcohol type: hard liquor How many standard drinks containing alcohol do you have on a typical day: 1 or 2 How often do you have six or more drinks on one occasion: Never AUDIT-C Alcohol total score: 1 Non-prescribed substance use: denies use Non-prescribed substance use details: tylenol Caffeine: Yes (coffee, 1 cup/day) Exam Narrative: Exam Narrative: General: Well-developed and well-nourished, no acute distress Head: Atraumatic and normocephalic Eyes: Pupils are equal reactive, extraocular motions intact, conjunctiva clear ENT: External nose and ears are normal, posterior pharynx without erythema or exudate Neck: No midline cervical tenderness, full spontaneous range of motion the neck, trachea midline, no adenopathy Heart: Regular rate and rhythm no murmurs or thrills Lungs: Trace crackles bilaterally Abdomen: Soft, nontender, nondistended with active bowel sounds Musculoskeletal: Left leg swelling, dressing on the left knee is clean, dry, and intact. On the superior edge of the wound there is an area of about 3 cm of a bruising medially and a small area laterally with mild tenderness, minimal warmth and no surrounding erythema Neurologic: Awake, alert, and oriented x3, no gross focal neurologic deficits, cranial nerves intact as tested Psych: Mood and affect are appropriate Skin: No rashes Const: Vital Signs, click to edit/add: Vital Signs - 24 hr 03/09/22 21:49 Temperature 98.5 F Pulse Rate [Left P ulse Oximeter] 79 Respiratory Rate 18 Blood Pressure [Ri ght Upper Arm] 144/125 H Pulse Oximetry 95 Oxygen Delivery Me thod Room Air Course Course Hospital Course: Prior records are reviewed. Patient presents with failure to thrive at home postoperatively but decreased appetite and decreased. Her incision appears clean, dry, intact with small joint effusion no redness or warmth to suggest infection. She denies chest pain or shortness of breath, pneumonia or pulmonary embolism is unlikely. Given poor oral intake, labs are ordered to evaluate for electrolyte disturbance or renal injury. Care was discussed with Dr. Mckinney in the emergency department for admission. Reevaluation(s) Reevaluation #1: Labs are reassuring including stable creatinine, hemoglobin slightly lower than preoperative. Time: 00:22 Vital Signs Vital signs: Initial Vital Signs Temperature 98.5 F 03/09/22 21:49 Temperature Source Temporal Artery Scan 03/09/22 21:49 Pulse Rate 79 03/09/22 21:49 Respiratory Rate 18 03/09/22 21:49 Blood Pressure 144/125 H 03/09/22 21:49 Blood Pressure Mean 131 03/09/22 21:49 Blood Pressure Position Supine 03/09/22 21:49 Pulse Oximetry 95 03/09/22 21:49 Oxygen Delivery Method 03/09/22 21:49 Vital Signs Temperature 98.5 F 03/09/22 21:49 Pulse Rate 79 03/09/22 21:49 Respiratory Rate 18 03/09/22 21:49 Blood Pressure 144/125 H 03/09/22 21:49 Pulse Oximetry 95 03/09/22 21:49 Oxygen Delivery Method 03/09/22 21:49 Temperature 98.5 F 03/09/22 21:49 Pulse Rate 79 03/09/22 21:49 Respiratory Rate 18 03/09/22 21:49 Blood Pressure 144/125 H 03/09/22 21:49 Pulse Oximetry 95 03/09/22 21:49 Oxygen Delivery Method 03/09/22 21:49 Medical Decision Making Medical Records Medical records reviewed: Yes I reviewed the patient's medical records Lab Data Lab results reviewed: Yes I reviewed the patient's lab results Labs: Lab Results 03/09/22 03/09/22 03/09/22 Range/Units 22:53 23:05 23:05 WBC 10.03 (4.50-11.00) K/uL RBC 3.13 L (4.00-5.20) m/uL Hgb 11.0 L (12.0-16.0) gm/dL Hct 32.5 L (33.0-51.0) % MCV 104 H (80-100) fL MCH 35 H (26-34) pg MCHC 34 (32-36) gm/dL RDW Coeff of Williams 12.6 (11.5-15.5) % Plt Count 176 (140-440) K/uL Neut % (Auto) 62.7 (42.0-72.0) % Lymph % (Auto) 19.2 L (20-44) % [place] % (Auto) 16.7 H (0.0-11.0) % Eos % (Auto) 0.7 (0.0-7.0) % Baso % (Auto) 0.2 (0.0-3.0) % Neut # (Auto) 6.28 (1.7-7.0) K/uL Lymph # (Auto) 1.90 (0.90-2.90) K/uL [place] # (Auto) 1.70 H (0.00-0.90) K/UL Eos # (Auto) 0.07 (0.00-0.50) K/uL Baso # (Auto) 0.02 (0.00-0.30) K/uL Abs Immat Gran (auto) 0.05 (0.00-0.30) K/uL Sodium 139 (135-149) mmol/L Potassium 4.1 (3.6-5.1) mmol/L Chloride 108 (96-114) mmol/L Carbon Dioxide 27 (20-32) mmol/L BUN 12 (7-30) mg/dL Creatinine 0.7 (0.5-1.5) mg/dL Estimated Creat Clear 34.42 Estimated GFR 88 ml/min Glucose 192 H (60-115) mg/dL Calcium 8.9 (8.4-10.6) mg/dL SARS-CoV-2 (PCR) Negative SARS-CoV-2 (Negative) Influenza Type A (PCR) Negative PCR FLU A (Negative) Influenza Type B (PCR) Negative PCR FLU B (Negative) Discharge Plan Discharge Clinical Impression: Type 2 diabetes mellitus with diabetic chronic kidney disease, Dementia, Post- operative pain, S/P total knee arthroplasty, Hypertension Patient Disposition: Admitted As Inpatient
--- NOTE | 2022-03-09 22:45 | PM.IMHP1 ---
Hospitalist- H&P: HPI History of Present Illness Time Seen by Provider: 22:25 Date Seen: 03/09/22 Chief complaint: WEAKNESS Narrative: Lima Sorensen is a 81 year old female with significant dementia who is s/p LTKA on 03/07/22, was discharged home yesterday, is now sleeping all day and her daughter is unable to get her out of bed to the bathroom. When I saw her yesterday, she was able to ambulate 100 ft with a walker and standby assistance. She was developing some bruising medially in the surgical knee, but this was not unexpected because she stopped aspirin and plavix 3 days preop instead of 7 days. She did alright at home yesterday. Her daughter, Jenny, tells me that Lima has been sleeping all day today and has been refusing exercises and cares. Jenny says she cannot care for Lima at home like this because she cannot get her up to the bathroom. She has not eaten or taken much in the way of fluids today. Lima has not had any fevers or chills, CP, SOB or nausea or vomiting. Her last pain medication was at 5 pm. I informed her that this would be an observation admission. Review of Systems Const: Reports: fatigue and change in sleep pattern; Denies: fever or chills Cardio: Reports: leg pain with exertion (Left post op knee pain, taking narcotic); Denies: chest pain, swelling of feet/ankles, shortness of breath with exertion or shortness of breath when lying down Resp: Denies: shortness of breath or cough GI: Reports: change in bowel habits (Daughter is unsure if patient has had a BM yet); Denies: abdominal pain, nausea, vomiting, diarrhea or constipation : Denies: painful urination or difficulty voiding Musculo: Reports: extremity pain (post op left knee pain); Denies: back pain Integ/Breast: Denies: rash or itching Neuro: Reports: behavioral changes Endo: Reports: fatigue PFSH PFS Medical History (Updated 03/09/22 @ 23:02 by Carrie Mckinney MD) Anemia Anxiety state 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, stage III Chronic kidney disease (CKD), stage III (moderate) Coronary artery disease Dementia Depression Epilepsy, unspecified, not intractable, without status epilepticus Esophageal reflux Frictional lichenoid dermatosis History of cerebrovascular accident Hyperlipidemia, unspecified Hypertension Insomnia Memory loss Migraine, unspecified, not intractable, without status migrainosus Neck pain Paroxysmal atrial fibrillation Primary localized osteoarthritis of both knees TIA (transient ischemic attack) 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 Unspecified sensorineural hearing loss Uterine cancer Surgical History (Updated 03/09/22 @ 23:02 by Carrie Mckinney MD) H/O section History of carotid endarterectomy History of cervical spinal surgery Hx of abdominal hysterectomy Hx of tonsillectomy Family History Father Diabetes Heart attack Larynx cancer Mother Heart attack Brother Brain cancer High blood pressure Sister Skin cancer High blood pressure Social History (Updated 03/09/22 @ 23:02 by Carrie Mckinney MD) Narrative: Lives with daughter Smoking Status: Former smoker Do you use any of these nicotine containing products: None Second hand tobacco smoke exposure: No How often do you have a drink containing alcohol: monthly or less Alcohol type: hard liquor How many standard drinks containing alcohol do you have on a typical day: 1 or 2 How often do you have six or more drinks on one occasion: Never AUDIT-C Alcohol total score: 1 Non-prescribed substance use: denies use Non-prescribed substance use details: tylenol Caffeine: Yes (coffee, 1 cup/day) Meds Home Medications and Allergies Home Medications Medication Instructions Recorded Confirmed Type benzonatate 200 mg capsule 200 mg PO PRN 01/16/22 01/16/22 History citalopram 20 mg tablet 20 mg PO DAILY 01/16/22 03/09/22 History cyproheptadine 4 mg tablet 4 mg PO QAM 01/16/22 03/09/22 History furosemide 20 mg tablet 20 mg PO .TWICE WEEKLY 01/16/22 03/09/22 History lisinopril 20 mg tablet 20 mg PO DAILY 01/16/22 03/09/22 History multivitamin (Multiple Vitamins 1 tab PO QAM 01/16/22 03/07/22 History tablet) nitroglycerin 0.4 mg sublingual 0.4 mg buccal Q5M PRN 01/16/22 03/07/22 History tablet topiramate 100 mg tablet 100 mg PO BID 01/16/22 03/09/22 History trazodone 100 mg tablet 100 mg PO .Bedtime 01/16/22 03/09/22 History albuterol sulfate 90 mcg/actuation 1 inh inhalation Q4-6H PRN 03/07/22 03/07/22 History aerosol inhaler aspirin 81 mg tablet,delayed 81 mg PO DAILY 03/07/22 03/07/22 History release (Adult Low Dose Aspirin) clopidogrel 75 mg tablet 75 mg PO DAILY 03/07/22 03/09/22 History metoprolol succinate 100 mg 100 mg PO BID 03/07/22 03/09/22 History tablet,extended release 24 hr atorvastatin 20 mg tablet 20 mg PO HS 03/08/22 03/09/22 History esomeprazole magnesium 40 mg 40 mg PO DAILY 03/08/22 03/09/22 History capsule,delayed release Allergies Allergy/AdvReac Type Severity Reaction Status Date / Time codeine Allergy Mild Verified 03/09/22 21:57 gabapentin Allergy Mild Verified 03/09/22 21:57 hydrochlorothiazide Allergy Mild Verified 03/09/22 21:57 hydromorphone Allergy Mild Verified 03/09/22 21:57 penicillin V Allergy Mild Verified 03/09/22 21:57 cefdinir AdvReac Unknown itching Verified 03/09/22 21:57 wild strawberries Allergy Unknown Uncoded 01/16/22 09:23 Exam Narrative: Exam Narrative: General: No acute distress. Pleasant, confused, awake, alert, oriented to self, not situation. HEENT: Normocephalic atraumatic, pupils equally round and reactive to light and accommodation. Oropharynx slightly dry. Mucous membranes are moist. No cervical lymphadenopathy, thyromegaly or carotid bruits. No JVD. Cardiovascular: Regular rate and rhythm. No murmurs, gallops, or rubs. Chest: No increased work of breathing. Clear to auscultation bilaterally. No crackles or wheezes. Abdomen: Bowel sounds present. Soft, nondistended, nontender. No hepatosplenomegaly or masses. Extremities: Left knee bandage is clean, dry, and intact. Wedge-shaped hematoma medially, soft, nontender. No induration. Trace bilateral pedal edema, no cyanosis or clubbing. Skin: No jaundice, no pallor, as above. Const: Vital Signs, click to edit/add: Vital Signs - 24 hr 03/09/22 21:49 Temperature 98.5 F Pulse Rate [Left P ulse Oximeter] 79 Respiratory Rate 18 Blood Pressure [Ri ght Upper Arm] 144/125 H Pulse Oximetry 95 Oxygen Delivery Me thod Room Air Assessment and Plan Assessment and plan (1) Weakness: Status: Acute Assessment and Plan: Likely combination of recent surgery and narcotic use for pain. CBC, BMP pending. Will need SNF. (2) Fatigue: Status: Acute Assessment and Plan: As above. (3) S/P total knee arthroplasty: Problem comment: 03/07/22 left knee Status: Acute (4) Dementia: Status: Chronic Assessment and Plan: Unchanged from yesterday. (5) Coronary artery disease: Status: Chronic Assessment and Plan: Asymptomatic. Continue aspirin and plavix. (6) Type 2 diabetes mellitus with diabetic chronic kidney disease: Status: Chronic Assessment and Plan: Diet controlled. (7) Hypertension: Status: Chronic Assessment and Plan: Continue home meds. Plan VTE prophylaxis with BID aspirin, TEDs and SCDs.
[2022-03-09 23:20] LABS: Basophils Absolute Auto 0.02 K/uL (0.00-0.30); Basophils Percent Auto 0.2 % (0.0-3.0); Eosinophils Absolute Auto 0.07 K/uL (0.00-0.50); Eosinophils Percent Auto 0.7 % (0.0-7.0); Hematocrit 32.5 % (33.0-51.0); Immature Granulocytes Abs Auto 0.05 K/uL (0.00-0.30); Lymphocytes Percent Auto 19.2 % (20-44); Mean Corpuscular HGB Conc 34 gm/dL (32-36); Mean Corpuscular Hemoglobin 35 pg (26-34); Mean Corpuscular Volume 104 fL (80-100); Monocytes Percent Auto 16.7 % (0.0-11.0); Neutrophils Absolute Auto 6.28 K/uL (1.7-7.0); Neutrophils Percent Auto 62.7 % (42.0-72.0); Platelet Count* 176 K/uL (140-440); RDW Coefficient of Variation % 12.6 % (11.5-15.5); Red Blood Count 3.13 m/uL (4.00-5.20); White Blood Count* 10.03 K/uL (4.50-11.00)
[2022-03-09 23:21] LABS: Slide Review Reflex No
[2022-03-09 23:24] LABS: Chloride* 108 mmol/L (96-114); Sodium* 139 mmol/L (135-149)
[2022-03-09 23:25] LABS: Potassium* 4.1 mmol/L (3.6-5.1)
[2022-03-09 23:27] LABS: Blood Urea Nitrogen* 12 mg/dL (7-30); Carbon Dioxide* 27 mmol/L (20-32); Creatinine* 0.7 mg/dL (0.5-1.5); Est. Creatinine Clearance* 34.42; Estimated Glomerular Filt Rate 88 ml/min
[2022-03-09 23:28] LABS: Calcium* 8.9 mg/dL (8.4-10.6); Glucose* 192 mg/dL (60-115)
[2022-03-09 23:35] LABS: PCR FLU A Negative PCR FLU A (Negative); PCR FLU B Negative PCR FLU B (Negative)
[2022-03-09 23:39] LABS: SARS PCR* Negative SARS-CoV-2 (Negative)
--- NOTE | 2022-03-09 23:47 | W.PC.EDHO ---
Primary Language: Preferred Language: Orientation Status: [x] Alert & Oriented [] Slight Confusion [] Known Dx Dementia Transfers By: [x] Assist of 1 [] Assist of 2 [] Lift Description of Symptoms ED Triage Present Problem [facility] called ahead Pt had L total knee with Description alecia . Originally planned NH but then did go home with daughter. EMS reports Pt stayed on toilet last night? Daughter did report to ortho that she cannot care for Pt at home, states Pt is weak. Pt reports pain continues to knee. Pain Pain Intensity [Left Knee] 9 Pain Scale Used [Left Knee] Numeric (1 - 10) Oxygen Administration Pulse Oximetry 95 Oxygen Delivery Method Room Air
[2022-03-10] VITALS (7 sets, daily range): BP systolic 140–185; BP diastolic 55–82; PULSE 62–74; RESP 20–24; TEMP 36.4–37; O2SAT 92–96; BMI 33.8
[2022-03-10] MEDS: ACETAMINOPHEN 500 MG TABLET 1000 MG PO ×3 (05:08→20:17)
[2022-03-10] MEDS: OXYCODONE 5 MG TABLET PO ×4 (05:09→19:14)
--- NOTE | 2022-03-10 05:52 | PC.NURSE ---
Patient admitted to unit at 0015. Cooperative with cares. Dressing to L. knee C/D/I. Baseline dementia. Scattered bruising to arms presumably from blood draws from previous hospital stay. Bruises also noted on lower extremities. Cryo cuff to L. knee. PRN Oxycodone and Tylenol x1 for pain relief. Utilized bedpan for toileting d/t extreme weakness in L. leg. Continent/incontinent per baseline. Brief in place.
[2022-03-10] MEDS: MULTIVITAMIN/MINERALS 1 TABLET 1 TAB PO (08:52)
[2022-03-10] MEDS: METOPROLOL SUCCINATE (XL) 100 MG TAB PO ×2 (08:52→20:16)
[2022-03-10] MEDS: OMEPRAZOLE 20 MG CAPSULE DR 40 MG PO (08:52)
[2022-03-10] MEDS: lisinopriL 20 MG TABLET PO (08:53)
[2022-03-10] MEDS: ASPIRIN 81 MG TABLET EC PO ×2 (08:53→20:17)
[2022-03-10] MEDS: CLOPIDOGREL 75 MG TABLET PO (08:53)
[2022-03-10] MEDS: CITALOPRAM HYDROBROMIDE 20 MG TABLET PO (08:53)
[2022-03-10] MEDS: TOPIRAMATE 50 MG TABLET 100 MG PO ×2 (08:54→23:24)
--- NOTE | 2022-03-10 10:17 | P.IMPN_ITS ---
Progress Note: A&P Assessment and plan (1) Fatigue: Status: Acute (2) Weakness: Status: Acute (3) S/P total knee arthroplasty: Problem details: 03/07/22 left knee Status: Acute (4) Type 2 diabetes mellitus with diabetic chronic kidney disease: Status: Chronic (5) Hypertension: Status: Chronic (6) Depression: Status: Chronic (7) Coronary artery disease: Status: Chronic (8) Dementia: Status: Chronic Plan 81F s/p left total knee arthroplasty presenting with weakness and fatigue. Admitted to observation service with anticipated need for STR/TCU placement 1. Generalized weakness 2. s/p left total knee arthroplasty 3. Hx of CAD 4. Hx of Type II DM; diet controlled 5. Hx of HTN 6. Hx of Dementia Plan -admited to observation -PT, OT, SW consult -will need placement -anticipated placement hopefully Friday once facility found -DVT ppx: aspirin Subjective Date Seen: 03/10/22 Interval history: patient seen at bedside daughter with patient denies cp, sob, nausea, and vomiting per daughter too weak at home and unable to ambulate to bathroom tolerating diet feels tired Exam Narrative: Exam Narrative: Gen: no acute distress HEENT: NCAT EOMI MMM CV: RRR normal s1 s2 Lungs: CTAB Abd; Soft, nt, nd Const: Vital Signs, click to edit/add: Vital Signs - 24 hr 03/09/22 21:49 03/10/22 01:16 03/10/22 01:16 Temperature 98.5 F 98.6 F Pulse Rate [Left P ulse Oximeter] 79 73 Respiratory Rate 18 22 Blood Pressure [Le ft Arm] Blood Pressure [Ri ght Arm] 160/82 H Blood Pressure [Ri ght Upper Arm] 144/125 H Pulse Oximetry 95 96 96 Oxygen Delivery Me thod Room Air Room Air Room Air 03/10/22 03:00 03/10/22 07:00 03/10/22 07:00 Temperature 97.8 F 98.3 F Pulse Rate [Left P ulse Oximeter] 74 66 66 Respiratory Rate 22 20 20 Blood Pressure [Le ft Arm] 148/68 H Blood Pressure [Ri ght Arm] 185/73 H Blood Pressure [Ri ght Upper Arm] Pulse Oximetry 94 96 Oxygen Delivery Me thod Room Air Room Air Labs Labs: Laboratory Results - last 24 hr 03/09/22 03/09/22 03/09/22 22:53 23:05 23:05 WBC 10.03 RBC 3.13 L Hgb 11.0 L Hct 32.5 L MCV 104 H MCH 35 H MCHC 34 RDW Coeff of Williams 12.6 Plt Count 176 Neut % (Auto) 62.7 Lymph % (Auto) 19.2 L Mckinley % (Auto) 16.7 H Eos % (Auto) 0.7 Baso % (Auto) 0.2 Neut # (Auto) 6.28 Lymph # (Auto) 1.90 Mckinley # (Auto) 1.70 H Eos # (Auto) 0.07 Baso # (Auto) 0.02 Abs Immat Gran (auto) 0.05 Sodium 139 Potassium 4.1 Chloride 108 Carbon Dioxide 27 BUN 12 Creatinine 0.7 Estimated Creat Clear 34.42 Estimated GFR 88 Glucose 192 H Calcium 8.9 SARS-CoV-2 (PCR) Negative SARS-CoV-2 Influenza Type A (PCR) Negative PCR FLU A Influenza Type B (PCR) Negative PCR FLU B
--- NOTE | 2022-03-10 14:21 | PC.NURSE ---
End of shift: Patient pleasant and cooperative. Patient Alert and oriented to self, place, day of week, month, year. Patient vitally stable, lungs clear, BS WNL, No IV. Patient 1 assist, walker, gb, ambulating to the toilet. Patient has rated pain at most 9/10, oxycodone 5mg given x2 and tylenol given once. Patient up in chair for breakfast and did not have lunch. Cryocuff applied to left knee. Left knee wound C/D/I.
[2022-03-10 16:31] LABS: Appearance Urine Clear (Clear); Bilirubin Urine Negative (Negative); Blood Urine Negative (Negative); Color Urine Yellow (Yellow); Glucose Urine Negative (Negative); Ketones Urine Negative (Negative); Leukocyte Esterase Urine Negative (Negative); Nitrite Urine Negative (Negative); Protein Urine Negative (Negative); Urobilinogen Urine 0.2 (0.2-1.0)
[2022-03-10] MEDS: ATORVASTATIN 10 MG TABLET 20 MG PO (20:16)
[2022-03-10] MEDS: SENNOSIDES 1 TAB TABLET 2 TAB PO (20:16)
--- NOTE | 2022-03-10 23:46 | PC.NURSE ---
shift [id number] pt this shift up to the bathroom x2 with use of walker, gait belt, and assist of 1. Pt wheezy and SOB during ambulation. O2 remained above 90% when back to bed on RA. L knee bandage CDI. Redness, warmth, and swelling noted around the knee. Outlined on pt to monitor growth of redness. pain 4-8/10 treated with oxycodone, see eMAR. Encourage to keep ice on knee, but pt wanted it off HS d/t getting cold. Delayed speech and difficulty finding words noted. Reminiscing about late and life together. UA collected and sent to lab. Retractive breathing noted during rest at suprasternal area, non labored.
[2022-03-11 03:00] VITALS: BP 150/78; PULSE 71; RESP 16; TEMP 36.6; O2SAT 95
--- NOTE | 2022-03-11 06:45 | PC.NURSE ---
[id number] Pt slept well during night, Ice to Left knee, up to BR with walker, GB, 1 assist, tolerated fair, does fatigue quit easily. pain 8/10 at beginning of shift, 0/10 after prn medications.
[2022-03-11] MEDS: OXYCODONE 5 MG TABLET PO ×4 (08:00→21:34)
[2022-03-11 08:09] VITALS: BP 187/79; PULSE 72; RESP 20; TEMP 36.7; O2SAT 93
[2022-03-11] MEDS: CLOPIDOGREL 75 MG TABLET PO (08:51)
[2022-03-11] MEDS: OMEPRAZOLE 20 MG CAPSULE DR 40 MG PO (08:51)
[2022-03-11] MEDS: lisinopriL 20 MG TABLET PO (08:51)
[2022-03-11] MEDS: MULTIVITAMIN/MINERALS 1 TABLET 1 TAB PO (08:51)
[2022-03-11] MEDS: SENNOSIDES 1 TAB TABLET 2 TAB PO ×2 (08:51→21:33)
[2022-03-11] MEDS: METOPROLOL SUCCINATE (XL) 100 MG TAB PO ×2 (08:51→21:34)
[2022-03-11] MEDS: CITALOPRAM HYDROBROMIDE 20 MG TABLET PO (08:52)
[2022-03-11] MEDS: ASPIRIN 81 MG TABLET EC PO ×2 (08:52→21:33)
[2022-03-11] MEDS: TOPIRAMATE 50 MG TABLET 100 MG PO ×2 (08:55→21:58)
--- NOTE | 2022-03-11 10:45 | PM.IMPN1 ---
Progress Note: A&P Assessment and plan (1) Weakness: Status: Acute (2) Post-operative pain: Status: Acute (3) S/P total knee arthroplasty: Problem details: 03/07/22 left knee Status: Acute (4) Type 2 diabetes mellitus with diabetic chronic kidney disease: Status: Chronic (5) Hypertension: Status: Chronic (6) Coronary artery disease: Status: Chronic (7) Dementia: Status: Chronic Plan Plan 81F s/p left total knee arthroplasty presenting with weakness and fatigue. Admitted to observation service with anticipated need for STR/TCU placement 1. Generalized weakness 2. s/p left total knee arthroplasty 3. Hx of CAD 4. Hx of Type II DM; diet controlled 5. Hx of HTN 6. Hx of Dementia Plan -admited to observation -PT, OT, SW consult -will need placement -anticipated placement hopefully Friday once facility found -DVT ppx: aspirin Subjective Date Seen: 03/11/22 Interval history: patient felt cold last night decreased appetite today daughter at bedside awaiting placement Exam Narrative: Exam Narrative: Gen: NAD HEENT: NCAT EOMI MMM CV: RRR normal s1 s2 lungs: CTAAB Abd:SOft, nt,nd Neuro: Alert, nonfocal screening exam Const: Vital Signs, click to edit/add: Vital Signs - 24 hr 03/10/22 11:00 03/10/22 15:00 03/10/22 15:00 Temperature 97.7 F 97.6 F Pulse Rate [Left P ulse Oximeter] 62 62 64 Respiratory Rate 20 21 21 Blood Pressure [Le ft Arm] Blood Pressure [Ri ght Arm] 172/79 H 140/55 H Pulse Oximetry 96 94 Oxygen Delivery Me thod Room Air Room Air 03/10/22 19:00 03/10/22 23:00 03/10/22 23:00 Temperature 97.6 F 97.8 F Pulse Rate [Left P ulse Oximeter] 66 63 63 Respiratory Rate 24 20 20 Blood Pressure [Le ft Arm] 143/77 H 158/82 H Blood Pressure [Ri ght Arm] Pulse Oximetry 92 94 Oxygen Delivery Me thod Room Air Room Air 03/11/22 03:00 03/11/22 08:09 Temperature 97.8 F 98.1 F Pulse Rate [Left P ulse Oximeter] 71 72 Respiratory Rate 16 20 Blood Pressure [Le ft Arm] 150/78 H Blood Pressure [Ri ght Arm] 187/79 H Pulse Oximetry 95 93 Oxygen Delivery Me thod Room Air Room Air Labs Labs: Laboratory Results - last 24 hr 03/10/22 16:13 Urine Color Yellow Urine Appearance Clear Urine pH 7.0 Ur Specific [place] 1.020 Urine Protein Negative Urine Glucose (UA) Negative Urine Ketones Negative Urine Blood Negative Urine Nitrite Negative Urine Bilirubin Negative Urine Urobilinogen 0.2 Ur Leukocyte Esterase Negative
[2022-03-11] MEDS: ACETAMINOPHEN 500 MG TABLET 1000 MG PO ×2 (15:16→21:32)
[2022-03-11 19:00] VITALS: BP 147/45; PULSE 71; RESP 22; TEMP 36.6; O2SAT 95
[2022-03-11] MEDS: ATORVASTATIN 10 MG TABLET 20 MG PO (21:33)
[2022-03-11 23:00] VITALS: PULSE 70; RESP 18
--- NOTE | 2022-03-11 23:12 | PC.NURSE ---
End of Shift: Patient pleasant and cooperative. Patient alert and oriented to self, place, day of week, month, and year. Patient vitally stable, lungs clear, BS WNL, No IV. Patient SBA, walker, gb. Patient rates pain at most 7/10, PRN tylenol and 5mg oxy given when patient asks for pain medication. Patient tolerating diet, urinating, and had 1 large BM.
[2022-03-11 23:30] VITALS: BP 158/84; PULSE 70; RESP 18; TEMP 36.6; O2SAT 93
--- NOTE | 2022-03-12 04:59 | PC.NURSE ---
[id number] Pt slept well during night, ice on at beginning of shift, pt requested to take ice off of left knee an hour later. pain tolerable throughout shift. did not require prn pain medications during night
[2022-03-12 07:00] VITALS: BP 179/79; PULSE 71; RESP 24; TEMP 36.6; O2SAT 94
[2022-03-12] MEDS: ACETAMINOPHEN 500 MG TABLET 1000 MG PO ×2 (07:34→14:46)
[2022-03-12] MEDS: OXYCODONE 5 MG TABLET PO ×3 (07:34→18:40)
[2022-03-12] MEDS: METOPROLOL SUCCINATE (XL) 100 MG TAB PO ×2 (09:05→20:32)
[2022-03-12] MEDS: lisinopriL 20 MG TABLET PO (09:05)
[2022-03-12] MEDS: CLOPIDOGREL 75 MG TABLET PO (09:05)
[2022-03-12] MEDS: OMEPRAZOLE 20 MG CAPSULE DR 40 MG PO (09:05)
[2022-03-12] MEDS: CITALOPRAM HYDROBROMIDE 20 MG TABLET PO (09:05)
[2022-03-12] MEDS: TOPIRAMATE 50 MG TABLET 100 MG PO ×2 (09:06→20:32)
[2022-03-12] MEDS: MULTIVITAMIN/MINERALS 1 TABLET 1 TAB PO (09:06)
[2022-03-12] MEDS: SENNOSIDES 1 TAB TABLET 2 TAB PO (09:06)
[2022-03-12] MEDS: ASPIRIN 81 MG TABLET EC PO ×2 (09:06→20:31)
--- NOTE | 2022-03-12 11:57 | PC.SOCIAL ---
Met with pt and pt's daughter, Nicolasa, in pt's room. Nicolasa states that she is not able to meet pt's needs and requests a short-term rehab stay in a SNF. Preferences are in [place] at the [facility]. Explained to Nicolasa that the [facility] is not a SNF. Nicolasa states she would prefer a SNF in [place] or [place]. Nicolasa states it is important that the pt and family know the insurance will cover the SNF stay. Phone call to Ashley in Admissions at [facility] in [place]. Ashley stated they have a bed open. Faxed initial information to [facility] Admissions.
[2022-03-12 15:00] VITALS: PULSE 66; RESP 24
--- NOTE | 2022-03-12 15:40 | PC.NURSE ---
shift [id number] pt this shift reporting pain 9/, treated with oxycodone see eMAR. Appetite is good. Encouraged to walk to door of room and back, pt refusing d/t pain. Up to chair for meals, walked to bathroom with 1 assist, walker and gait belt. VSS. sm loose and formed BM this shift. Nutrition consult in for diabetes education
--- NOTE | 2022-03-12 16:38 | PC.SOCIAL ---
Phone call from pt's daughter, Jenny. Jenny requesting an update on discharge plans for pt. Informed Jenny that information was sent to [facility] and they are reviewing the information and this worker is anticipating an answer tomorrow morning. Will keep in contact with Jenny on discharge plans.
--- NOTE | 2022-03-12 18:29 | PM.IMPN1 ---
Progress Note: A&P Assessment and plan (1) Weakness: Status: Acute (2) Post-operative pain: Status: Acute (3) S/P total knee arthroplasty: Problem details: 03/07/22 left knee Status: Acute (4) Dementia: Status: Chronic (5) Type 2 diabetes mellitus with diabetic chronic kidney disease: Status: Chronic Assessment and Plan: diet controlled (6) Hypertension: Status: Chronic (7) Coronary artery disease: Status: Chronic Plan Daughter unable to care for patient at home. Weakness and fatigue s/p LTKA. Awaiting SNF acceptance. No safe discharge available today. Continue PT and OT. SW helping with discharge. Continue BID low dose aspirin for post op VTE prophylaxis. Diarrhea - hold laxatives for diarrhea. If she continues to have diarrhea, check cdiff. Continue home trazodone. Subjective Time Seen by Provider: 18:40 Date Seen: 03/12/22 Interval history: Lima expressed disappointment that her post op course is not going as well as she anticipated it would. She also wanted her usual sleep medication tonight. She did not know what it is called. She c/o diarrhea and doesn't want any more laxatives. Exam Narrative: Exam Narrative: General: No acute distress. Awake, alert, oriented to self, place and situation, at baseline. Cardiovascular: Regular rate and rhythm. No murmurs, gallops, or rubs. Chest: Clear to auscultation bilaterally. No crackles or wheezes. Abdomen: Bowel sounds present. Soft, nondistended, nontender. Extremities: Left knee bandage is clean, dry, and intact. Wedge-shaped hematoma medially, soft, nontender, extending to gravity down the medial knee posteriorly. No induration. Trace bilateral pedal edema, no cyanosis or clubbing. Const: Vital Signs, click to edit/add: Vital Signs - 24 hr 03/11/22 19:00 03/11/22 23:00 03/11/22 23:30 Temperature 98 F 97.8 F Pulse Rate [Left P ulse Oximeter] 71 70 70 Respiratory Rate 22 18 18 Blood Pressure [Le ft Arm] Blood Pressure [Ri ght Arm] 147/45 H 158/84 H Pulse Oximetry 95 93 Oxygen Delivery Me thod Room Air Room Air 03/12/22 07:00 03/12/22 07:00 03/12/22 15:00 Temperature 98 F Pulse Rate [Left P ulse Oximeter] 71 71 66 Respiratory Rate 24 24 24 Blood Pressure [Le ft Arm] 179/79 H Blood Pressure [Ri ght Arm] Pulse Oximetry 94 Oxygen Delivery Me thod Room Air Documenting provider has reviewed patient's vital signs: yes
[2022-03-12 19:45] VITALS: BP 183/93; PULSE 77; RESP 20; TEMP 36.5; O2SAT 95
[2022-03-12] MEDS: TRAZODONE HCL 50 MG TABLET 100 MG PO (20:31)
[2022-03-12] MEDS: ATORVASTATIN 10 MG TABLET 20 MG PO (20:32)
[2022-03-12 23:00] VITALS: RESP 18
--- NOTE | 2022-03-13 05:13 | PC.NURSE ---
[id number] Pt in bed entire shift except to go to BR, encouraged pt to walk halls, pt adamantly refused, pt education completed on importance of exercise. Ice on and off during night per pt request. no prn pain medication needed this shift and pt slept comfortably during night.
[2022-03-13 07:55] VITALS: BP 185/99; PULSE 71; RESP 20; TEMP 36.6; O2SAT 95
[2022-03-13] MEDS: OXYCODONE 5 MG TABLET PO ×3 (08:30→19:08)
[2022-03-13] MEDS: ACETAMINOPHEN 500 MG TABLET 1000 MG PO ×3 (08:31→20:18)
[2022-03-13] MEDS: METOPROLOL SUCCINATE (XL) 100 MG TAB PO ×2 (08:32→20:18)
[2022-03-13] MEDS: TOPIRAMATE 50 MG TABLET 100 MG PO ×2 (08:32→20:20)
[2022-03-13] MEDS: OMEPRAZOLE 20 MG CAPSULE DR 40 MG PO (08:33)
[2022-03-13] MEDS: ASPIRIN 81 MG TABLET EC PO ×2 (08:33→20:19)
[2022-03-13] MEDS: MULTIVITAMIN/MINERALS 1 TABLET 1 TAB PO (08:33)
[2022-03-13] MEDS: lisinopriL 20 MG TABLET PO (08:33)
[2022-03-13] MEDS: CLOPIDOGREL 75 MG TABLET PO (08:34)
[2022-03-13] MEDS: CITALOPRAM HYDROBROMIDE 20 MG TABLET PO (08:34)
--- NOTE | 2022-03-13 10:54 | PC.SOCIAL ---
Received a phone call from Ashley in Admissions at [facility] in [place]. [facility] has accepted pt for admission. [facility] asks that pt admit tomorrow (03-14-2022) as they do not have the staffing today to complete admission.
[2022-03-13 12:00] VITALS: BP 138/79; PULSE 69; RESP 20; TEMP 37.1; O2SAT 92
--- NOTE | 2022-03-13 13:03 | PM.IMPN1 ---
Progress Note: A&P Assessment and plan (1) Weakness: Problem details: Making slow progress with therapy Status: Acute (2) Post-operative pain: Problem details: Pain is limiting her activity Status: Acute (3) S/P total knee arthroplasty: Problem details: 03/07/22 left knee Status: Acute (4) Dementia: Status: Chronic (5) Type 2 diabetes mellitus with diabetic chronic kidney disease: Status: Chronic (6) Hypertension: Status: Chronic (7) Coronary artery disease: Status: Chronic Plan Continue in hospital pending discharge to care home facility Time Spent With Patient Total time spent: Total time spent today is 25 minutes, 20 minutes in coordination of care and discussing with other providers management of rehabilitation and pain Subjective Date Seen: 03/13/22 Interval history: 81-year-old female seen in followup of rehospitalization after left total knee arthroplasty 6 days ago. Patient continues to complain of left knee pain. She is receiving oxycodone fairly regularly. She is resistant to therapy getting her up out of bed or chair to ambulate. She has no other concerns today. Exam Narrative: Exam Narrative: She is alert and appears in no distress. Respirations are clear to auscultation. Cardiovascular: S1, S2, regular rate and rhythm. Abdomen: Bowel sounds active. Abdomen is soft without tenderness. Knee is examined. She has moderate bruising of the left knee. It is my mildly warm to touch. Distally she has 1+ edema. Const: Vital Signs, click to edit/add: Vital Signs - 24 hr 03/12/22 15:00 03/12/22 19:45 03/12/22 23:00 Temperature 97.7 F Pulse Rate [Left D orsalis Pedis] Pulse Rate [Left P ulse Oximeter] 66 77 Respiratory Rate 24 20 18 Blood Pressure [Le ft Arm] Blood Pressure [Ri ght Arm] 183/93 H Pulse Oximetry 95 Oxygen Delivery Me thod Room Air 03/13/22 07:55 03/13/22 12:00 Temperature 97.9 F 98.8 F Pulse Rate [Left D orsalis Pedis] 71 Pulse Rate [Left P ulse Oximeter] 71 69 Respiratory Rate 20 20 Blood Pressure [Le ft Arm] 185/99 H 138/79 Blood Pressure [Ri ght Arm] Pulse Oximetry 95 92 Oxygen Delivery Me thod Room Air Room Air Documenting provider has reviewed patient's vital signs: yes
--- NOTE | 2022-03-13 13:06 | PC.SOCIAL ---
Met with pt and pt's daughter, Jenny, in pt's room. Informed them that Pt was accepted for admission at [facility]. Jenny will plan to transport Pt. to [facility] tomorrow morning upon discharge at [facility]. Jenny asks for more information on what she should bring to [facility] and also asks for directions to the facility. This worker printed directions to [facility] and provided the construction project coordinator, Ashley's phone number. This worker provided information to Jenny from [facility]. Pt can bring her belongings such as clothes and any personal belongings that she may need, a copy of POA or healthcare directive, if there is one in place, and insurance cards. Jenny asked if Pt. needed her medication from home and this worker informed Jenny that [facility] supplies the medication. Informed Jenny that [facility] informed that Medicare will pay for the first twenty days of the stay and then the secondary insurance will pay if it is determined that more time is needed. [facility] can provide more information on the insurance coverage if needed. Jenny will be at [facility] before 10:00 am tomorrow to assist with transporting after discharge.
--- NOTE | 2022-03-13 14:15 | PC.SOCIAL ---
Completed Preadmission Screening for SNF stay. Confirmation #[id number]. Saved preadmission screening in Social Work shared drive.
[2022-03-13 15:00] VITALS: PULSE 66; RESP 21
--- NOTE | 2022-03-13 15:40 | PC.NURSE ---
Please see eMar for medications provided during the day shift. Pt rates her pain anywhere from 5-9.5 out of 10, though she appears comfortable when in recliner or supine in bed. Eval by PT, OT and Dr. Perez. Plan transfer to [facility] tomorrow at 10:00 am. Pt is aware of this plan. Cryocuff as tolerated. I'm so cold. Pt was in an unpleasant mood this am, improved throughout the shift, enjoyed snack of tapioca and hot chocolate this afternoon. Dtr Jenny present for PT exercises. Pt needs encouragement to walk in hallway, she comes up with excuses not to participate in cares. Apparent lack of motivation. Report to [facility] for evening shift.
[2022-03-13 19:00] VITALS: BP 152/75; PULSE 64; RESP 21; O2SAT 93
[2022-03-13] MEDS: TRAZODONE HCL 50 MG TABLET 100 MG PO (20:18)
[2022-03-13] MEDS: SENNOSIDES 1 TAB TABLET 2 TAB PO (20:19)
[2022-03-13] MEDS: ATORVASTATIN 10 MG TABLET 20 MG PO (20:19)
[2022-03-13 23:00] VITALS: PULSE 62; RESP 20
--- NOTE | 2022-03-13 23:45 | PC.NURSE ---
shift [id number] pt this shift calm and cooperative. Ambulate from chair to bed and bed to bathroom. SOB and wheezing during exertion. Stable on RA. Pain rated 7-9/10, oxycodone and tylenol given, see eMAR.
[2022-03-14] MEDS: OXYCODONE 5 MG TABLET PO ×2 (06:11→09:53)
--- NOTE | 2022-03-14 06:34 | PC.NURSE ---
Alert and oriented x3. On room air and satting fine. Vital signs stable. left knee pain managed with ice and Oxycodone. Patient is self ambulatory with a walker. No concerns noted overnight
[2022-03-14 07:23] LABS: Basophils Absolute Auto 0.03 K/uL (0.00-0.30); Basophils Percent Auto 0.5 % (0.0-3.0); Eosinophils Absolute Auto 0.26 K/uL (0.00-0.50); Eosinophils Percent Auto 4.7 % (0.0-7.0); Hematocrit 32.9 % (33.0-51.0); Hemoglobin* 10.7 gm/dL (12.0-16.0); Lymphocytes Absolute Auto 1.67 K/uL (0.90-2.90); Mean Corpuscular HGB Conc 33 gm/dL (32-36); Mean Corpuscular Hemoglobin 35 pg (26-34); Mean Corpuscular Volume 107 fL (80-100); Monocytes Percent Auto 15.6 % (0.0-11.0); Neutrophils Absolute Auto 2.73 K/uL (1.7-7.0); Neutrophils Percent Auto 49.2 % (42.0-72.0); Platelet Count* 242 K/uL (140-440); Red Blood Count 3.09 m/uL (4.00-5.20); White Blood Count* 5.56 K/uL (4.50-11.00)
[2022-03-14 07:50] LABS: Chloride* 109 mmol/L (96-114); Potassium* 3.7 mmol/L (3.6-5.1); Sodium* 140 mmol/L (135-149)
[2022-03-14 08:01] LABS: Blood Urea Nitrogen* 10 mg/dL (7-30); C Reactive Protein* 2.1 mg/dL (0.5-1.0); Calcium* 8.9 mg/dL (8.4-10.6); Carbon Dioxide* 25 mmol/L (20-32); Creatinine* 0.7 mg/dL (0.5-1.5); Est. Creatinine Clearance* 34.42; Estimated Glomerular Filt Rate 88 ml/min; Glucose* 156 mg/dL (60-115)
--- NOTE | 2022-03-14 09:04 | P.DS_ITS ---
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 Preoperatively she had continued antiplatelet treatments and had above average amount of bleeding and bruising postoperatively. DS: Summary Hospital Course Hospital Course: 81-year-old female readmitted to the hospital for management of disability following knee arthroplasty. March 07 she underwent left total knee arthroplasty. Procedure was uncomplicated. She had continued her antiplatelet therapy before surgery and had above average postoperative bleeding and bruising. She was also having troubles with pain. She discharged home with her daughter but her daughter was unable to care for her at home and she was brought back to the hospital. She has had no other postoperative complications other than bruising around her left knee. Status at Discharge Functional status at discharge: uses cane/walker Overall status at discharge: patient is not back to baseline Time Spent with Patient Time attestation: Total time spent providing and/or coordinating discharge services: 35 minutes Exam Narrative: Exam Narrative: She is alert and appears in no distress. Mood and affect are bright. Breathing is unlabored. Knee is examined she has prominent bruising, purple turning to green and yellow, around the left knee. No significant erythema. 1+ edema in the left calf Const: Vital Signs, click to edit/add: Vital Signs - 24 hr 03/13/22 12:00 03/13/22 15:00 03/13/22 19:00 Temperature 98.8 F Pulse Rate [Left P ulse Oximeter] 69 66 64 Respiratory Rate 20 21 21 Blood Pressure [Le ft Arm] 138/79 Blood Pressure [Ri ght Arm] 152/75 H Pulse Oximetry 92 93 Oxygen Delivery Me thod Room Air Room Air 03/13/22 23:00 Temperature Pulse Rate [Left P ulse Oximeter] 62 Respiratory Rate 20 Blood Pressure [Le ft Arm] Blood Pressure [Ri ght Arm] Pulse Oximetry Oxygen Delivery Me thod Documenting provider has reviewed patient's vital signs: yes DS: Data Data Completed and Pending Labs on day of discharge: Labs from last 24 hours 03/14/22 03/14/22 05:50 05:50 WBC 5.56 RBC 3.09 L Hgb 10.7 L Hct 32.9 L MCV 107 H MCH 35 H MCHC 33 RDW Coeff of [place] 13.0 Plt Count 242 Neut % (Auto) 49.2 Lymph % (Auto) 30.0 [place] % (Auto) 15.6 H Eos % (Auto) 4.7 Baso % (Auto) 0.5 Neut # (Auto) 2.73 Lymph # (Auto) 1.67 [place] # (Auto) 0.90 Eos # (Auto) 0.26 Baso # (Auto) 0.03 Abs Immat Gran (auto) 0.00 Sodium 140 Potassium 3.7 Chloride 109 Carbon Dioxide 25 BUN 10 Creatinine 0.7 Estimated Creat Clear 34.42 Estimated GFR 88 Glucose 156 H Calcium 8.9 C-Reactive Protein 2.1 H Discharge Plan Discharge Disposition: [facility] Date of Admission: 03/10/22 00:10 Attending Provider on Discharge: Wallace Perez Primary Care Provider: Meghan Lara Discharge Medications: New oxycodone 5 mg capsule 2.5 - 5 mg PO Q4H PRN (Reason: pain) Qty: 30 0RF Continued furosemide 20 mg tablet 20 mg PO QTUTH Rx Instructions: QAM ON & citalopram 20 mg tablet 20 mg PO DAILY cyproheptadine 4 mg tablet 4 mg PO QAM lisinopril 20 mg tablet 20 mg PO DAILY topiramate 100 mg tablet 100 mg PO BID trazodone 100 mg tablet 100 mg PO .Bedtime nitroglycerin 0.4 mg tablet, sublingual 0.4 mg buccal Q5M PRN Rx Instructions: PRN CHEST PAIN benzonatate 200 mg capsule 200 mg PO PRN Label Comments: NOT TAKING multivitamin [Multiple Vitamins] Tablet 1 tab PO QAM albuterol sulfate 90 mcg/actuation HFA aerosol inhaler 1 inh inhalation Q4-6H PRN metoprolol succinate 100 mg tablet extended release 24 hr 100 mg PO BID clopidogrel 75 mg tablet 75 mg PO DAILY aspirin [Adult Low Dose Aspirin] 81 mg tablet,delayed release (DR/EC) 81 mg PO DAILY Hold Instructions: Resume on 04/12/22. May resume this dosing of aspirin when postoperative twice a day dosing of aspirin is complete. acetaminophen 500 mg Tablet 500 - 1,000 mg PO Q6H Qty: 100 0RF aspirin 81 mg Tablet,Delayed Release (Dr/Ec) 81 mg PO BID Qty: 60 0RF sennosides [Senna Lax] 8.6 mg Tablet 17.2 mg PO BID Qty: 30 0RF Rx Instructions: Hold if experiencing loose stools. atorvastatin 20 mg tablet 20 mg PO HS esomeprazole magnesium 40 mg capsule,delayed release(DR/EC) 40 mg PO DAILY Discontinued oxycodone 5 mg Tablet 2.5 - 5 mg PO Q4-6H PRN (Reason: Pain) Qty: 42 0RF Discharge Orders: Discharge Order (Routine); Ordered 03/14/22 Ordered By: Wallace Perez Activity Restrictions/Additional Instructions: PT and OT to evaluate and treat after left total knee arthroplasty Activity Level: Activity as Tolerated and Use Walker Discharge Diet: Regular Follow Up Appointments: Meghan Lara MD [Primary Care Provider] -
[2022-03-14 09:15] VITALS: BP 145/101; PULSE 71; RESP 20; TEMP 36.7; O2SAT 96
[2022-03-14] MEDS: MULTIVITAMIN/MINERALS 1 TABLET 1 TAB PO (09:50)
[2022-03-14] MEDS: TOPIRAMATE 50 MG TABLET 100 MG PO (09:50)
[2022-03-14] MEDS: OMEPRAZOLE 20 MG CAPSULE DR 40 MG PO (09:50)
[2022-03-14] MEDS: lisinopriL 20 MG TABLET PO (09:51)
[2022-03-14] MEDS: CLOPIDOGREL 75 MG TABLET PO (09:51)
[2022-03-14] MEDS: CITALOPRAM HYDROBROMIDE 20 MG TABLET PO (09:51)
[2022-03-14] MEDS: SENNOSIDES 1 TAB TABLET 2 TAB PO (09:52)
[2022-03-14] MEDS: ACETAMINOPHEN 500 MG TABLET 1000 MG PO (09:52)
[2022-03-14] MEDS: METOPROLOL SUCCINATE (XL) 100 MG TAB PO (09:52)
[2022-03-14] MEDS: ASPIRIN 81 MG TABLET EC PO (09:52)
[2022-03-14 21:04] VITALS: BP 145/101; PULSE 71; RESP 20; TEMP 36.7
--- NOTE | 2022-03-14 21:08 | PC.NURSE ---
Pt. reported 5/10 pain in left knee, alleviated w/PRN medication; bruised and swollen. Dressing to left knee C/D/I. TEDS in place, cryocuff to left knee. No IV to remove. Discharge packet given to daughter, and nurse to nurse report given to Riley @ [facility] . Oxycodone administered prior to D/C. Pt. left via w/c to her daughter's car @ 1012.
[2022-03-15 17:16] LABS: Slide Review Reflex No
== END 2022-03-14 10:12 ==
LOC: ED 22:41 → MEDSURG 03-10 00:31
PROVIDERS: Family Medicine; Hospitalist; Admitting Provider Family Medicine; Emergency Provider Family Medicine; PCP Family Medicine; Visit Provider Family Medicine
DX: G89.18 Other acute postprocedural pain (principal); M25.562 Pain in left knee; R53.1 Weakness; R53.83 Other fatigue; Z96.652 Presence of left artificial knee joint; F32.A Depression, unspecified; I25.10 Atherosclerotic heart disease of native coronary artery without angina pectoris; I13.10 Hypertensive heart and chronic kidney disease without heart failure, with stage 1 through stage 4 chronic kidney disease, or unspecified chronic kidney disease; N18.30 Chronic kidney disease, stage 3 unspecified; E11.22 Type 2 diabetes mellitus with diabetic chronic kidney disease; F03.90 Unspecified dementia, unspecified severity, without behavioral disturbance, psychotic disturbance, mood disturbance, and anxiety; Z79.84 Long term (current) use of oral hypoglycemic drugs; Z79.82 Long term (current) use of aspirin; Z87.891 Personal history of nicotine dependence; Z98.890 Other specified postprocedural states; Z47.1 Aftercare following joint replacement surgery; Z47.89 Encounter for other orthopedic aftercare; E78.5 Hyperlipidemia, unspecified; Z86.73 Personal history of transient ischemic attack (TIA), and cerebral infarction without residual deficits; R19.7 Diarrhea, unspecified; M25.40 Effusion, unspecified joint
CPT/HCPCS: 36415; 80048; 81003; 85025; 86140; 87631; 97110; 97116; 97161; 97165; 97530; 97535; 99284; A9153; A9270; G0378; G0379

== ENCOUNTER 2022-12-05 16:17 | Outpatient (CLI) | payer MEDICARE, OTHER, SELFPAY | END 2022-12-05 16:18 | disposition home or self-care (01) | LOC: AMB 12-21 00:22 | PROVIDERS: PCP Family Medicine; Visit Provider Family Medicine | DX: R07.89 Other chest pain (principal) | CPT/HCPCS: A0425; A0427 ==